=== PATIENT | male | born 1985 | race Caucasian/White ===

== ENCOUNTER 2020-04-04 11:32 | Outpatient (REF) | payer OTHER, SELFPAY ==
[2020-04-04 11:54] LABS: COVID-19 Test Negative (Negative)
== END 2020-04-04 11:33 | disposition home or self-care (01) ==
LOC: HO.EMPCOV 11:32
PROVIDERS: Visit Provider Internal Medicine
DX: Z20.828 Contact with and (suspected) exposure to other viral communicable diseases (principal)
CPT/HCPCS: 87635; C9803

== ENCOUNTER → 2021-01-07 15:31 | Outpatient (BNVA) | payer OTHER, SELFPAY | PROVIDERS: PCP Nurse Practitioner Family; Visit Provider Surgery ==

== ENCOUNTER 2021-01-16 06:54 | Outpatient (REF) | payer OTHER, SELFPAY ==
[2021-01-16 09:20] LABS: Alanine Aminotransferase 18 U/L (0-40); Albumin Level 4.3 g/dL (3.5-5.0); Alkaline Phosphatase 64 U/L (39-117); Anion Gap 13 (12-20); Aspartate Amino Transferase 19 U/L (5-37); Bilirubin Total 1.1 mg/dL (0.0-1.0); Blood Urea Nitrogen 13 mg/dL (9-16); Carbon Dioxide 27 mmol/L (22-29); Chloride 104 mmol/L (96-108); Cholesterol 150 mg/dL; Estimated Glomerular Filt Rate > 60; Glucose Fasting 101 mg/dL (60-99); HDL Cholesterol 51 mg/dL; LDL Cholesterol Calculated 80 mg/dl; Sodium 140 mmol/L (135-145); Total Protein 6.5 g/dL (6.5-8.0); Triglycerides 97 mg/dL
[2021-01-16 09:45] LABS: Appearance Urine CLEAR; Color Urine YELLOW; Glucose Urine UA NEG (NEG); Leukocyte Esterase Urine NEG (NEG); Nitrite Urine NEG (NEG); PH 6.5 (5.0-8.0); Urine Blood NEG (NEG); Urine Ketones 5 MG/DL (NEG); Urine Protein NEG (NEG-TRACE)
== END 2021-01-16 06:55 | disposition home or self-care (01) ==
LOC: HO.LAB 06:54
PROVIDERS: PCP Nurse Practitioner Family; Visit Provider Nurse Practitioner Family
DX: Z00.00 Encounter for general adult medical examination without abnormal findings (principal)
CPT/HCPCS: 36415; 80053; 80061; 81003; 84443

== ENCOUNTER 2021-01-27 09:13 | Day surgery (SDC) | payer OTHER, SELFPAY ==
[2021-01-21 17:05] VITALS: BMI 25.5
--- NOTE | 2021-01-24 12:22 | HO.ANESPROP2 ---
Documented by User: Larissa Osman NP 01/24/21 12:24 HPI - Anesthesia Eval Consult details Narrative: 35yo M for Hernia Repair Umbilical PMFSH Active Problems Active Problems: All Active Problems (Updated 01/21/21 @ 16:58 by Deborah Sanders RN) Physical exam (Acute) Ventral hernia (Acute) Past Medical History Medical History No significant past medical history Family History Family History Maternal Grandmother Lung cancer Maternal Grandfather Leukemia Mother Skin cancer Surgical History Surgical History History of hand surgery Social History Social History Housing: House Are you a primary physician primary care sports medicine to a significant other at home: No Do you presently have visiting nurse or other home services: No Patient Tobacco Use Status: Former Tobacco user Quit Date: 5 yrs ago Tobacco use type: Cigarette Years Smoked: 5 years ago Use of substances other than those prescribed or required for medical reasons: No Have you been hit, kicked, punched, or otherwise hurt by someone within the past year? If so, by whom?: No Are you DNR?: No Advance Directives: No Advance Directives Information Provided: No Advance Directives on File: No Recently lost weight without trying: No Eating poorly because of decreased appetite: No Nutrition Risks: No Nutritional Risk service: Yes Current occupational status: employed Current occupation: [employer] Meds Allergies Allergy/AdvReac Type Severity Reaction Status Date / Time No Known Allergies Allergy Verified 01/27/21 09:20 Home Medications Medication Instructions Recorded Confirmed Last Taken Type No Known Home Meds 12/10/20 01/21/21 Unknown History Exam Exam Date and Time: January 24, 2021 1222 Height,Weight and Vital Signs: Height 5 ft 10 in Weight 80.739 kg Pertinent Lab Results Pertinent Lab Results: Laboratory Tests 10/26/19 01/16/21 09:22 07:00 WBC 5.8 Hgb 15.3 Hct 46.0 Plt Count 247 Sodium 140 Potassium 4.0 Chloride 104 Carbon Dioxide 27 BUN 13 Creatinine 1.15 Assessment and Plan Assessment Anesthesia Assessment: Chart Reviewed Documented by User: Connor Burr MD 01/27/21 11:01 [facility] Past Medical History Medical History No significant past medical history Family History Family History Maternal Grandmother Lung cancer Maternal Grandfather Leukemia Mother Skin cancer Family history of problems with anesthesia: No Surgical History Surgical History History of hand surgery History of Problems with Anesthesia: No Social History Social History Housing: House Are you a primary physician primary care sports medicine to a significant other at home: No Do you presently have visiting nurse or other home services: No Patient Tobacco Use Status: Former Tobacco user Quit Date: 5 yrs ago Tobacco use type: Cigarette Years Smoked: 5 years ago Use of substances other than those prescribed or required for medical reasons: No Have you been hit, kicked, punched, or otherwise hurt by someone within the past year? If so, by whom?: No Are you DNR?: No Advance Directives: No Advance Directives Information Provided: No Advance Directives on File: No Recently lost weight without trying: No Eating poorly because of decreased appetite: No Nutrition Risks: No Nutritional Risk service: Yes Current occupational status: employed Current occupation: [employer] Meds Allergies Allergy/AdvReac Type Severity Reaction Status Date / Time No Known Allergies Allergy Verified 01/27/21 09:20 Home Medications Medication Instructions Recorded Confirmed Last Taken Type No Known Home Meds 12/10/20 01/21/21 Unknown History Exam Airway Mallampati Class: I TM Dist: >3cm Neck ROM: Full Loose/Missing/Broken Teeth: No Heart: ok Lungs: ok Assessment and Plan Final Anesthetic Review Family History of Problems with Anesthesia: No History of Problems with Anesthesia: No NPO: Yes ASA Class: I Final Preanesthetic Review: No Changes in Pt Med Stat, Meds/Allgs Chart Reviewed, Consent Obtained/Reviewed and Anes Risks/Benef Reviewed Patient Risk: Low Procedure Risk: Low Anesthetic Plan Anesthetic Plan: GA and Agree w/ Assess. and Plan Disposition: Standard PACU
[2021-01-27] VITALS (7 sets, daily range): BP systolic 117–138; BP diastolic 67–75; PULSE 65–81; RESP 16–18; TEMP 36.6–36.7; O2SAT 98–99
--- NOTE | 2021-01-27 09:08 | MHC.SHP ---
Pre-Procedural Eval Section A Date of Service: 01/27/21 The patient is an INPATIENT: No Changes since office visit: Yes Patient answered all questions; No Cold of Flu in the past 2 weeks, No New Medical Problems and No Changes in Medication The History & Physical has been completed within 30 days and I have reviewed it.: Yes Section B Chief Complaint: Umbilical hernia without obstruction or gangrene Allergies: Allergies Allergy/AdvReac Type Severity Reaction Status Date / Time No Known Allergies Allergy Verified 01/21/21 17:05 Plan Diagnosis/Plan: Unchanged I have reviewed the history and physical and performed a pertinent physical examination on my patient. No changes have occurred unless specified.
[2021-01-27] MEDS: Lactated Ringers 1,000 ML 100 ML IVCONT (09:43)
--- NOTE | 2021-01-27 11:48 | W.PM.OPN ---
Operative Note Operative Note Date of Service: 01/27/21 Narrative: Preoperative diagnosis: Ventral hernia Postoperative diagnosis: Same Procedure: Repair of ventral hernia with mesh Surgeon: Stanley Fischer MD Solar Installation Foreman: Helen Monsivais PA-C Anesthesia: General LMA Indications for procedure: 35-year-old male patient presenting with an upper abdominal lump which increases in size with lifting and straining reduces with light pressure. The lump has increased in size and is now causing increased discomfort. He presents today for repair of this ventral hernia. Operative findings: Ventral hernia in the upper abdomen with a defect measuring approximately 2 cm in diameter. This was repaired using a small round Ventralex mesh. Specimen: None Estimated blood loss: 5 mL Complications: None Procedure details: Patient was brought to the OR placed in a supine position. After administering general anesthesia the patient's abdomen was prepped with ChloraPrep and draped in a sterile fashion. A surgical time-out was called the consent confirmed. Patient received preoperative antibiotics and Venodyne boots were in place. Local anesthesia consisting of 0.5% Sensorcaine plain was infiltrated in the region around the hernia. A midline incision was then made directly over the palpable lump in carried out through subcutaneous tissue up to the hernia sac. The hernia sac was then dissected circumferentially down to the fascial defect. The fascial defect was then opened circumferentially and the hernia sac reduced into the abdominal cavity. A preperitoneal space was then created using electrocautery and blunt dissection. The small round Ventralex mesh was then obtained. This was then deployed into the preperitoneal space. Fascia was closed over the mesh incorporating the sutures in the mesh. This was then using [id number] 1 Tycron sutures. Wounds were then irrigated with saline solution and suctioned dry. Additional local was infiltrated into the muscular tissue and subcutaneous tissue. Subcutaneous tissue was then reapproximated using interrupted 3-0 Polysorb sutures. Dermis was reapproximated using interrupted 3-0 Polysorb sutures. Skin was then closed using a running subcuticular 4-0 Polysorb suture. Steri-Strips 2 x 2 gauze and Tegaderm were then applied. The patient tolerated the procedure well. Sponge, instrument, and needle counts were reported as correct. The patient was transferred to PACU in stable condition.
[2021-01-27] MEDS: Acetaminophen 325 MG TABLET 650 MG PO (12:26)
[2021-01-27] MEDS: oxyCODONE HCl Immed Release 5 MG TABLET PO (12:28)
== END 2021-01-27 13:15 | disposition home or self-care (01) ==
PROVIDERS: PCP Nurse Practitioner Family; Visit Provider Surgery
PROC: (CPT 49560; principal; 2021-01-27 10:50)
DX: K43.9 Ventral hernia without obstruction or gangrene (principal)
CPT/HCPCS: 49560; 49568; C1781; J0690; J1100; J1885; J2250; J2405; J3010

== ENCOUNTER → 2021-02-04 15:20 | Outpatient (BNVA) | payer OTHER, SELFPAY | PROVIDERS: PCP Nurse Practitioner Family; Visit Provider Surgery ==

== ENCOUNTER → 2021-03-11 12:57 | Outpatient (BNVA) | payer SELFPAY | PROVIDERS: PCP Nurse Practitioner Family; Referring Provider Nurse Practitioner Family; Visit Provider Surgery | DX: Z48.815 Encounter for surgical aftercare following surgery on the digestive system (principal); Z87.19 Personal history of other diseases of the digestive system | CPT/HCPCS: 99212 ==

== ENCOUNTER 2021-12-11 13:43 | Outpatient (REF) | payer OTHER, SELFPAY ==
--- NOTE | ~2021-12-11 | XR_ITS ---
EXAMINATION: XR KNEE AP STANDING CLINICAL INFORMATION: Bilateral knee pain COMPARISON: None TECHNIQUE: AP bilateral standing view of the knees was obtained. Upright lateral view each knee. FINDINGS: BILATERAL AP KNEE STANDING: There is normal bilateral median and lateral compartment joint space without bony erosive changes. No loose bodies or fracture seen. LEFT KNEE: The patellofemoral compartment joint space is normal. No loose bodies or joint effusion bony erosive changes. No visible acute fracture or dislocation. RIGHT KNEE: The patellofemoral compartment joint space is normal. There are no loose bodies, bony erosive changes or joint effusion. No visible acute fracture or dislocation. XR/XR knee standing BI IMPRESSION: 1. Unremarkable bilateral knee AP standing. 2. Unremarkable bilateral lateral knee exam.
== END 2021-12-11 13:44 | disposition home or self-care (01) ==
LOC: HO.HMGCX 13:43
PROVIDERS: PCP Nurse Practitioner Family; Visit Provider Nurse Practitioner Family
DX: M25.561 Pain in right knee (principal); M25.562 Pain in left knee
CPT/HCPCS: 73565

== ENCOUNTER 2022-02-20 09:00 | Outpatient (RCR) | payer OTHER, SELFPAY ==
--- NOTE | 2022-01-30 09:59 | MHC.PT.EP ---
[facility] [place] Office [place] Office [place] Office [address] Josie Cartwright [address] [phone] F: [phone] F: [phone] F: [phone] F: [phone] Physical Therapy Plan of Care Date of Evaluation: Date of Surgery: NA Diagnosis: Pain in L knee Assessment: Brenden is a 36 year old male who is referred to PT for L knee pain . He reports of having pain in B knee for over 10 years. He was in the and got out 11 years back and has had pain since then. His symptoms have gotten worse with time. On PT examination he presents with no TTP, 5/10 pain with squats and stairs, knee ROM WNL, decreased B hip and knee strength and mildly alerted posture. He presented with no gait deviations. He is independent with all ADLS however has pain with activites like squatting and stairs. He still does them but modifies by using UE support. He would benefit from skilled PT to address the aforementioned impairments and improve tolerance to functional activities. Frequency and Duration: The patient will be seen 2/week for 4 weeks Short Term Goals: 1. Pt will have 50% decrease in pain with stair negotiation in 2 weeks. 2. Pt will be able to perform squats to help his daughter wear her shoes with a pain no more than 1/10 in 3 weeks. Pin Setter Goals: 1. Pt will be able to perform deep squats and stair negotiation without pain in 4 weeks. 2. Pt will be independent with [facility] for symptom management and maintenance following d/c in 4 weeks. Treatment Plan: Modalities to reduce pain, spasms and effusion. Manual therapy to restore motion and function. Therapeutic exercise to improve strength and flexibility. Neuromuscular re-education for posture and balance. Therapeutic activities to return to functional activities of daily living. Electronically signed by: Ann Rodriguez PT DPT Please sign and return to therapist. Thank you for your referral.
--- NOTE | 2022-03-31 08:42 | MHC.PT.DC ---
[facility] [place] Office [place] Office [place] Office [address] Josie Cartwright [address] [phone] F: [phone] F: [phone] F: [phone] F: [phone] Physical Therapy Discharge Report Diagnosis: Pain in L knee Date of Surgery: NA Date of Evaluation: 01/30/22 Date of Discharge: 03/31/22 Treatments to Date: 3 Cancellations to Date: 0 No Shows to Date: Discharge Status: Patient Elected to Stop Discharge Summary: Brenden did not attend PT after his 3rd visit. He canceled all his appointments. He is therefore being d/c from PT. Electronically signed by: Ann Rodriguez PT DPT Please sign and return to therapist. Thank you for your referral.
== END 2022-03-31 08:42 | disposition home or self-care (01) ==
LOC: HO.PT 09:00
PROVIDERS: PCP Nurse Practitioner Family; Visit Provider Nurse Practitioner Family
DX: M25.562 Pain in left knee (principal)
CPT/HCPCS: 97110; 97161

== ENCOUNTER 2022-03-13 09:03 | Outpatient (REF) | payer OTHER, SELFPAY ==
[2022-03-13 09:17] LABS: MANUAL DIFF FLAG NO
[2022-03-13 09:37] LABS: Basophils Percent Auto 0.8 % (0-2); Eosinophils Absolute Auto 0.2 X10*3/uL (0.0-0.4); Eosinophils Percent Auto 2.9 % (0-4); Hematocrit 42.9 % (42.0-52.0); Hemoglobin 14.8 g/dl (14.0-18.0); Imm Gran Abs Auto 0.02 X10*3/uL (0.00-0.03); Imm Gran Pct Auto 0.4 % (0.0-0.4); Lymphocytes Absolute Auto 2.1 X10*3/uL (1.2-4.9); Lymphocytes Percent Auto 39.5 % (20-40); Mean Corpuscular HGB Conc 34.5 g/dl (31.0-36.0); Mean Corpuscular Volume 86.8 fL (80.0-98.0); Mean Platelet Volume 9.2 fL (9.4-12.4); Monocytes Absolute Auto 0.4 X10*3/uL (0.1-1.2); Monocytes Percent Auto 6.9 % (2-11); Neutrophils Absolute Auto 2.6 x10*3/uL (2.0-8.3); Neutrophils Percent Auto 49.5 % (45-73); Platelet Count 231 X10*3/uL (160-400); Red Blood Count 4.94 X10*6/uL (4.60-5.80); Red Cell Distribution Width 12.6 % (11.0-16.0); White Blood Count 5.2 X10*3/uL (4.8-10.8)
[2022-03-13 10:02] LABS: Alanine Aminotransferase 18 U/L (0-40); Albumin Level 4.3 g/dL (3.5-5.0); Alkaline Phosphatase 55 U/L (39-117); Anion Gap 12 (12-20); Aspartate Amino Transferase 18 U/L (5-37); Bilirubin Total 1.4 mg/dL (0.0-1.0); Blood Urea Nitrogen 17 mg/dL (9-16); Calcium 9.1 mg/dL (8.4-10.2); Carbon Dioxide 29 mmol/L (22-29); Chloride 104 mmol/L (96-108); Cholesterol 191 mg/dL; Estimated Glomerular Filt Rate > 60; Glucose Fasting 110 mg/dL (60-99); HDL Cholesterol 52 mg/dL; LDL Cholesterol Calculated 120 mg/dl; Potassium 4.7 mmol/L (3.3-5.1); Sodium 140 mmol/L (135-145); Total Protein 6.5 g/dL (6.5-8.0); Triglycerides 98 mg/dL
[2022-03-13 10:26] LABS: TSH reflex Free T4 1.13 uIU/mL (0.32-4.0)
[2022-03-13 10:34] LABS: Appearance Urine Clear; Color Urine Yellow; Glucose Urine UA Negative (Negative); Leukocyte Esterase Urine Negative (Negative); Nitrite Urine Negative (Negative); PH 6.5 (5.0-9.0); Urine Blood Negative (Negative); Urine Ketones Negative (Negative); Urine Protein Negative (Neg-Trace)
== END 2022-03-13 09:04 | disposition home or self-care (01) ==
LOC: HO.LAB 09:03
PROVIDERS: PCP Nurse Practitioner Family; Visit Provider Nurse Practitioner Family
DX: Z00.00 Encounter for general adult medical examination without abnormal findings (principal)
CPT/HCPCS: 36415; 80053; 80061; 81003; 84443; 85025

== ENCOUNTER 2022-12-15 07:31 | Outpatient (AMB) | payer OTHER, SELFPAY ==
--- NOTE | 2022-12-15 07:36 | A.OFFPC_ITS ---
Vital Signs 12/15/22 07:38 Height 5 ft 10 in Weight 182 lb 8 oz BMI 26.2 BP 120/76 Blood Pressure Location Rt brachial Position Sitting Pulse 57 Pulse Source Pulse Oximeter Pulse Oximetry (%) 99 Oxygen Delivery Method Room Air Intake Visit Reasons: annual PE Allergies No Known Allergies Allergy (Verified 12/15/22 07:41) Tobacco use date assessed: 12/15/22 Dental Screening Dental Screen Date: 12/15/22 Did you have a dental visit in the last 12 months?: Yes Did you have a dental problem in the last 6 months where you did not have access to dental care?: No Was dental information given to patient?: Patient has dentist HPI annual PE HPI Details Pt is here for a PE. Will order labs. [facility] Medical History No significant past medical history Surgical History H/O vasectomy H/O ventral hernia repair History of hand surgery Family History Maternal Grandmother Lung cancer Maternal Grandfather Leukemia Mother Skin cancer Social History Housing: House Are you a primary inspector health care facilities to a significant other at home: No Do you presently have visiting nurse or other home services: No Patient Tobacco Use Status: Former Tobacco user Quit Date: 5 yrs ago Tobacco use type: Cigarette Years Smoked: 5 years ago e-Cigarette/Vaping Use: Never Used Second Hand Smoke Exposure: No service: Yes Current occupational status: employed Current occupation: [employer] Current occupational exposures/hazards: No Cognitive needs: No Hearing needs: No Vision needs: No Questionnaire Thrive Questionnaire Date Thrive assessed: 12/11/21 AUDIT C Alcohol Use Questionnaire (AUDIT-C) 1. How often do you have a drink containing alcohol?: 2-3 times a week 2. How many drinks containing alcohol do you have on a typical day when you are drinking?: 1 or 2 3. How often do you have six or more drinks on one occasion?: Less than monthly Total Score: 4 REVA-7 AMB Questionnaire REVA-7 Date REVA - 7 assessed: 12/11/21 Source: Developed by Drs. John Wilhelm, Vandana العلي, Cristi Winters and colleagues, with an educational sintia from [employer]™. Review of Systems Const Denies chills and Denies fever(s) Eyes Denies blurry vision ENT Denies vertigo, Denies dizziness and Denies sore throat Card Denies chest pain at rest, Denies chest pain with activity, Denies diaphoresis, Denies dyspnea and Denies dyspnea on exertion Resp Denies cough, Denies dyspnea, Denies dyspnea on exertion and Denies wheezing GI Denies abdominal pain, Denies melena, Denies hematochezia, Denies constipation, Denies diarrhea and Denies loose stools Denies hematuria Musc Denies numbness and Denies tingling Skin/Breast Denies lesions Neuro Denies vertigo, Denies dizziness, Denies numbness and Denies tingling Psych Denies anxiety, Denies depression, Denies homicidal ideation, Denies suicidal ideation and Denies other (substance abuse) Aller/Immun Denies wheezing Physical exam (Primary Care) Vital Signs: Last Vital Signs Pulse 57 12/15/22 07:38 BP 120/76 12/15/22 07:38 Pulse Ox 99 12/15/22 07:38 Oxygen Delivery Method Room Air 12/15/22 07:38 BMI result Body Mass Index 26.2 Tobacco/Smoking Status: Tobacco use Status Tobacco use date assessed 12/15/22 12/15/22 07:44 Patient Tobacco Use Status Former Tobacco user 12/15/22 07:44 Tobacco use type Cigarette 12/15/22 07:44 e-Cigarette/Vaping Use Never Used 12/15/22 07:44 Thrive Assessment: Date of Thrive Assessment Date Thrive assessed 12/11/21 12/15/22 07:44 Const General: cooperative Nutritional Appearance: well nourished Orientation/consciousness: patient oriented x3 HENMT Head: Yes normal to inspection, Yes normocephalic and Yes atraumatic Ears: TM's normal bilaterally Eyes General: appearance normal, both eyes and all related structures Alignment and Position: alignment normal and position normal Neck Neck: Yes normal visual inspection and Yes no lymphadenopathy Thyroid: Thyroid normal Resp Effort & Inspection: normal respiratory effort Auscultation: clear to auscultation bilaterally Cardio Rate: regular rate Rhythm: regular rhythm Heart sounds: S1 normal heart sound present, S2 normal heart sound present and no murmurs GI Palpation (GI): Soft to palpation and nontender Auscultation: normal bowel sounds Male General Exam: Yes normal external exam Penis: normal penis Scrotum: scrotum normal, testes descended bilaterally and no inguinal hernias Testes: no testicular mass Skin Rashes: no rashes Neuro General: patient oriented x3, moves all extremities, no focal motor deficits and deep tendon reflexes 2+ bilaterally Romberg Test: Negative Psych Appearance: grossly normal Mental Status: mental status grossly normal Speech and movement: Normal speech and movement present Affect: normal affect Attitude: cooperative Thought process: Normal thought process present Thought content: Normal thought content present Insight: Good insight present (Psych) Judgement: Good judgement present (Psych) Assessment and Plan Assessment & Plan (1) Physical exam: Code(s): Z00.00 - Encounter for general adult medical examination without abnormal findings Plan: Labs ordered Plan The patient agreed to the use of a medical lab assistant for this encounter. Scribed for SHERRI Serna by Oly Pratt medical lab assistant, on 12/15/2022 at 07:50 EST. Coding Level of Care Code Est Pt Prev Care 18-39y(14661) Diagnoses Physical exam Z00.00
[2022-12-15 07:38] VITALS: BP 120/76; PULSE 57; O2SAT 99; BMI 26.2
== END 2022-12-15 08:16 | disposition home or self-care (01) ==
PROVIDERS: Visit Provider Nurse Practitioner Family
DX: Z00.00 Encounter for general adult medical examination without abnormal findings (principal)
CPT/HCPCS: 99395

== ENCOUNTER 2022-12-15 08:17 | Outpatient (REF) | payer OTHER, SELFPAY ==
[2022-12-15 11:27] LABS: Basophils Absolute Auto 0.1 X10*3/uL (0.0-0.2); Basophils Percent Auto 0.8 % (0-2); Eosinophils Absolute Auto 0.3 X10*3/uL (0.0-0.4); Eosinophils Percent Auto 5.2 % (0-4); Hematocrit 44.5 % (42.0-52.0); Hemoglobin 14.7 g/dl (14.0-18.0); Imm Gran Abs Auto 0.02 X10*3/uL (0.00-0.03); Imm Gran Pct Auto 0.3 % (0.0-0.4); Lymphocytes Absolute Auto 2.4 X10*3/uL (1.2-4.9); Lymphocytes Percent Auto 36.8 % (20-40); MANUAL DIFF FLAG NO; Mean Corpuscular Hemoglobin 29.1 pg (27.0-33.0); Mean Corpuscular Volume 87.9 fL (80.0-98.0); Mean Platelet Volume 9.5 fL (9.4-12.4); Monocytes Absolute Auto 0.4 X10*3/uL (0.1-1.2); Monocytes Percent Auto 5.8 % (2-11); Neutrophils Absolute Auto 3.4 x10*3/uL (2.0-8.3); Neutrophils Percent Auto 51.1 % (45-73); Platelet Count 246 X10*3/uL (160-400); Red Blood Count 5.06 X10*6/uL (4.60-5.80); Red Cell Distribution Width 12.9 % (11.0-16.0); White Blood Count 6.6 X10*3/uL (4.8-10.8)
[2022-12-15 11:51] LABS: Appearance Urine Clear; Color Urine Yellow; Glucose Urine UA Negative (Negative); Leukocyte Esterase Urine Negative (Negative); Nitrite Urine Negative (Negative); PH 6.5 (5.0-9.0); Specific Gravity - Urine <= 1.005 (1.005-1.025); Urine Blood Negative (Negative); Urine Ketones Negative (Negative); Urine Protein Negative (Neg-Trace)
[2022-12-15 12:06] LABS: Alanine Aminotransferase 17 U/L (0-40); Albumin Level 4.2 g/dL (3.5-5.0); Alkaline Phosphatase 53 U/L (39-117); Anion Gap 10 (12-20); Aspartate Amino Transferase 18 U/L (5-37); Bilirubin Total 0.7 mg/dL (0.0-1.0); Blood Urea Nitrogen 21 mg/dL (9-16); Calcium 8.9 mg/dL (8.4-10.2); Carbon Dioxide 29 mmol/L (22-29); Chloride 103 mmol/L (96-108); Cholesterol 179 mg/dL; Estimated Glomerular Filt Rate > 60; Glucose Fasting 115 mg/dL (60-99); HDL Cholesterol 57 mg/dL; LDL Cholesterol Calculated 91 mg/dl; Potassium 4.2 mmol/L (3.3-5.1); Sodium 138 mmol/L (135-145); Total Protein 6.7 g/dL (6.5-8.0); Triglycerides 155 mg/dL
[2022-12-15 12:09] LABS: TSH reflex Free T4 1.64 uIU/mL (0.32-4.0)
== END 2022-12-15 08:18 | disposition home or self-care (01) ==
LOC: HO.HMGCLDS 08:17
PROVIDERS: PCP Nurse Practitioner Family; Visit Provider Nurse Practitioner Family
DX: Z00.00 Encounter for general adult medical examination without abnormal findings (principal)
CPT/HCPCS: 36415; 80053; 80061; 81003; 84443; 85025

== ENCOUNTER 2023-12-21 11:28 | Outpatient (AMB) | payer OTHER, SELFPAY ==
[2023-12-21 11:30] VITALS: BP 122/78; PULSE 76; O2SAT 98; BMI 26.1
--- NOTE | 2023-12-21 11:30 | A.OFFPC_ITS ---
Vital Signs 12/21/23 11:30 Height 5 ft 10 in Weight 182 lb BMI 26.1 BP 122/78 Blood Pressure Location Rt brachial Position Sitting Pulse 76 Pulse Source Pulse Oximeter Pulse Oximetry (%) 98 Oxygen Delivery Method Room Air Intake Visit Reasons: Annual PE Intake Note: pt is here for annual exam Rod Hanger Required: No Accompanied by: Self / Same As Patient Allergies No Known Allergies Allergy (Verified 12/21/23 11:31) Medication List - Last Reconciled 12/21/23 by SHERRI Lucas No Known Home Meds Tobacco use date assessed: 12/21/23 Dental Screening Dental Screen Date: 12/21/23 Did you have a dental visit in the last 12 months?: Yes Did you have a dental problem in the last 6 months where you did not have access to dental care?: No Was dental information given to patient?: Patient has dentist HPI Annual PE HPI Details pt is here for a PE. Offers no questions or concerns [facility] Medical History No significant past medical history Surgical History H/O vasectomy H/O ventral hernia repair History of hand surgery Family History Maternal Grandmother Lung cancer Maternal Grandfather Leukemia Mother Skin cancer Social History Housing: House Are you a primary child day care provider to a significant other at home: No Do you presently have visiting nurse or other home services: No Patient Tobacco Use Status: Former Tobacco user Tobacco use type: Cigarette Years Smoked: 5 years ago e-Cigarette/Vaping Use: Never Used Second Hand Smoke Exposure: No service: Yes Current occupational status: employed Current occupation: [employer] Current occupational exposures/hazards: No Cognitive needs: No Hearing needs: No Vision needs: No Questionnaire PHQ-9 Over the last 2 weeks, how often have you been bothered by any of the following problems? 1. Little interest or pleasure in doing things: not at all 2. Feeling down, depressed, or hopeless: not at all 3. Trouble falling or staying asleep, or sleeping too much: several days 4. Feeling tired or having little energy: several days 5. Poor appetite or overeating: not at all 6. Feeling bad about yourself - or that you are a failure or have let yourself or your family down: several days 7. Trouble concentrating on things, such as reading the newspaper or watching television: several days 8. Moving or speaking so slowly that other people could have noticed. Or the opposite - being so fidgety or restless that you have been moving around a lot more than usual: not at all 9. Thoughts that you would be better off or of hurting yourself in some way: not at all Total score: 4 Depression Screening Interpretation: Negative Depression Screening Done: Yes 43768 - PHQ-9 Billing: Yes Source: Developed by Drs. John Wilhelm, Vandana العيل, Cristi Winters and colleagues, with an educational sintia from [employer]. Thrive Questionnaire Date Thrive assessed: 12/21/23 I am a: Patient What is your living situation today?: I have a steady place to live Within the past 12 months, did the food you bought not last and you didn't have the money to get more?: Never true Within the past 12 months, did you worry whether your food would run out before you got money to buy more?: Never true Do you have trouble paying for medicines?: No Do you have trouble getting transportation to medical appointments?: No Do you have trouble paying your heating and electricity bill?: No Do you have trouble taking care of your child, family member or friend?: No Do you have trouble with day-to-day activities such as bathing, preparing meals, shopping, managing finances, etc.?: No Are you currently unemployed and looking for a job?: No Are you interested in more education?: No Please select the resources that you would like help with: None Currently or been in a relationship where the following occur: No concerns reported THRIVE Score: 0 AUDIT C Alcohol Use Questionnaire (AUDIT-C) 1. How often do you have a drink containing alcohol?: 2-3 times a week 2. How many drinks containing alcohol do you have on a typical day when you are drinking?: 1 or 2 3. How often do you have six or more drinks on one occasion?: Less than monthly Total Score: 4 Score Reviewed/Action Taken: Yes REVA-7 AMB Questionnaire REVA-7 Date REVA - 7 assessed: 12/21/23 Feeling nervous, anxious, or on edge: 0 = Not at all Not being able to stop or control worryin = Not at all Worrying too much about different things: 1 = Several days Trouble relaxin = Several days Being so restless that it is hard to sit still: 0 = Not at all Becoming easily annoyed or irritable: 1 = Several days Feeling afraid as if something awful might happen: 0 = Not at all Total REVA-7 score (0-4 normal; 5-9 mild; 10-14 moderate; 15-21 severe): 3 Source: Developed by Drs. John Wilhelm, Vandana العلي, Cristi Winters and colleagues, with an educational sintia from [employer]. REVA-7 Assessment Billing REVA-7 Assessment Tool: REVA-7 Assessment 67419 Review of Systems Const Denies chills and Denies fever(s) Eyes Denies blurry vision ENT Denies vertigo, Denies dizziness and Denies sore throat Card Denies chest pain at rest, Denies chest pain with activity, Denies diaphoresis, Denies dyspnea and Denies dyspnea on exertion Resp Denies cough, Denies dyspnea, Denies dyspnea on exertion and Denies wheezing GI Denies abdominal pain, Denies melena, Denies hematochezia, Denies constipation, Denies diarrhea and Denies loose stools Denies hematuria Musc Denies numbness and Denies tingling Skin/Breast Denies lesions Neuro Denies vertigo, Denies dizziness, Denies numbness and Denies tingling Psych Denies anxiety, Denies depression, Denies homicidal ideation, Denies suicidal ideation and Denies other (substance abuse) Aller/Immun Denies wheezing Physical exam (Primary Care) Vital Signs: Last Vital Signs Pulse 76 12/21/23 11:30 BP 122/78 12/21/23 11:30 Pulse Ox 98 12/21/23 11:30 Oxygen Delivery Method Room Air 12/21/23 11:30 BMI result Body Mass Index 26.1 Tobacco/Smoking Status: Tobacco use Status Tobacco use date assessed 12/21/23 12/21/23 11:35 Patient Tobacco Use Status Former Tobacco user 12/21/23 11:35 Tobacco use type Cigarette 12/21/23 11:35 e-Cigarette/Vaping Use Never Used 12/21/23 11:35 PHQ-9: PHQ-9 Score PHQ-9: Total score 4 12/21/23 11:35 Depression Screening Interpretation: Negative Thrive Assessment: Date of Thrive Assessment Date Thrive assessed 12/21/23 12/21/23 11:35 Currently or been in a relationship where the following occur: No concerns reported Const General: cooperative Nutritional Appearance: well nourished Orientation/consciousness: patient oriented x3 HENMT Head: Yes normal to inspection, Yes normocephalic and Yes atraumatic Ears: TM normal on the right and TM normal on the left Eyes General: appearance normal, both eyes and all related structures Alignment and Position: alignment normal and position normal Neck Neck: Yes normal visual inspection and Yes no lymphadenopathy Resp Effort & Inspection: normal respiratory effort Auscultation: clear to auscultation bilaterally Cardio Rate: regular rate Rhythm: regular rhythm Heart sounds: S1 normal heart sound present, S2 normal heart sound present and no murmurs GI Palpation (GI): Soft to palpation and nontender Auscultation: normal bowel sounds Male General Exam: Yes normal external exam Penis: normal penis Scrotum: scrotum normal, testes descended bilaterally and no inguinal hernias Testes: no testicular mass Skin Rashes: no rashes Neuro General: patient oriented x3, moves all extremities, no focal motor deficits and deep tendon reflexes 2+ bilaterally Romberg Test: Negative Extrem Right lower extremity: no edema Left lower extremity: no edema Psych Affect: normal affect Attitude: cooperative Thought process: Normal thought process present Assessment and Plan Assessment & Plan (1) Physical exam: Code(s): Z00.00 - Encounter for general adult medical examination without abnormal findings Orders: Orders Comprehensive [place]. Panel Fast Today Z00.00 - Encounter for general adult medical examination without abnormal findings Lipid Panel Today Z00.00 - Encounter for general adult medical examination without abnormal findings Complete Blood Count Auto Diff Today Z00.00 - Encounter for general adult medical examination without abnormal findings TSH reflex Free T4 Today Z00.00 - Encounter for general adult medical examination without abnormal findings UA CC w/rflx Micro + Cult Today Z00.00 - Encounter for general adult medical examination without abnormal findings Hemoglobin A1c Today Z00.00 - Encounter for general adult medical examination without abnormal findings Coding Level of Care Code Est Pt Prev Care 18-39y(70385) Diagnoses Physical exam Z00.00 Additional Codes REVA-7 Assessment Billing - REVA-7 Assessment Tool: REVA-7 Assessment 93272 ([id number])
== END 2023-12-21 12:10 | disposition home or self-care (01) ==
PROVIDERS: PCP Nurse Practitioner Family; Visit Provider Nurse Practitioner Family
DX: Z00.00 Encounter for general adult medical examination without abnormal findings (principal)
CPT/HCPCS: 99395

== ENCOUNTER 2024-12-08 10:36 | Outpatient (REF) | payer OTHER, SELFPAY ==
--- OUTSIDE RECORDS SUMMARY | 2024-12-08 10:40 | XMS_ITS | Encounter Summary ---
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 Name Role Phone Md, Unknown Primary Care Provider Unavailabl e Reason for Referral * Imaging (Routine) - Closed Specialty Diagnoses / Procedures Referred By Contac t Referred To Contact Radiology Diagnoses Pain in thoracic spine Procedures XR THORACOLUMBAR SPINE 2 VIEWS Dora Joel NP [address] [place] [address] Phone: tel: fax: [facility] - Central Sched[place] Phone: tel: fax: Referral ID Status Reason Start Date Expiration Date V isits Requested Visits Authorized [id number] Closed Perform Procedure 05/05/2023 05/04/2024 1 1 * Imaging (Routine) - Closed Specialty Diagnoses / Procedures Referred By Contac t Referred To Contact Radiology Diagnoses Pain, unspecified Procedures XR LUMBAR SPINE 2-3 VIEWS Dora Joel NP [address] [place] [address] Phone: tel: fax: [facility] - Central Scheduling [place] Phone: tel: fax: Referral ID Status Reason Start Date Expiration Date V isits Requested Visits Authorized [id number] Closed Perform Procedure 05/05/2023 05/04/2024 1 1 Encounter Details Date Type Department Care Team (Late st Contact Info) Description 05/05/2023 Ancillary Orders [facility] Hospital Access [address] [facility] [address] Dora Joel, MARBLE CUTTER OPERATOR [address] [place] [facility] [place] [address] Pain, unspecified (Primary Dx); Pain in thoracic spine Social History Tobacco Use Types Packs/Day Years Used Date Smoking Tobacco: Never Assessed Sex and Gender Information Value Date Recorded Sex Assigned at Not on file Legal Sex Male 10:14 AM EST Gender Identity Not on file Sexual Orientation Not on file documented as of this encounter Plan of Treatment Not on file documented as of this encounter Results * XR LUMBAR SPINE 2-3 VIEWS (05/05/2023 10:52 AM EST) Anatomical Region Laterality Modality Shoulder Radio Fluoroscop y 05/05/2023 2:02 PM EST Impressions 05/05/2023 2:05 PM EST Normal visualized thoracic and lumbar spine x-rays. Narrative 05/05/2023 2:05 PM EST EXAM TYPE: XR LUMBAR SPINE 2-3 VIEWS, XR THORACOLUMBAR SPINE 2 VIEWS CLINICAL INDICATION: Pain, unspecified, exam of lower spine///Pt states pain Rt lower back to lower thoracic spine x 10-12 yrs. COMPARISON: None. FINDINGS: The upper thoracic spine is out of the [id number]. The visualized thoracic spine demonstrates straightening of the normal kyphosis. Vertebral bodies and disc spaces in the visualized thoracic spine appear normal. No fracture, subluxation or significant arthritic changes. There is normal lumbar lordosis. The vertebral bodies and disc spaces in the lumbar spine appear normal. No fracture, subluxation or significant arthritic change is identified. Procedure Note Segundo Trammell MD - 05/05/2023 EXAM TYPE: XR LUMBAR SPINE 2-3 VIEWS, XR THORACOLUMBAR SPINE 2 VIEWS CLINICAL INDICATION: Pain, unspecified, exam of lower spine///Pt statespain Rt lower back to lower thoracic spine x 10-12 yrs. COMPARISON: None. FINDINGS: The upper thoracic spine is out of the [id number]-kf-[id number]. The visualizedthoracic spine demonstrates straightening of the normal kyphosis.Vertebral bodies and disc spaces in the visualized thoracic spine appearnormal. No fracture, subluxation or significant arthritic changes. There is normal lumbar lordosis. The vertebral bodies and disc spaces inthe lumbar spine appear normal. No fracture, subluxation or significantarthritic change is identified. IMPRESSION: Normal visualized thoracic and lumbar spine x-rays. us Dora Joel NP IMG XR PROCEDURES Final R esult * XR THORACOLUMBAR SPINE 2 VIEWS (05/05/2023 10:51 AM EST) Anatomical Region Laterality Modality Radio Fluoroscop y 05/05/2023 2:02 PM EST Impressions 05/05/2023 2:05 PM EST Normal visualized thoracic and lumbar spine x-rays. Narrative 05/05/2023 2:05 PM EST EXAM TYPE: XR LUMBAR SPINE 2-3 VIEWS, XR THORACOLUMBAR SPINE 2 VIEWS CLINICAL INDICATION: Pain, unspecified, exam of lower spine///Pt states pain Rt lower back to lower thoracic spine x 10-12 yrs. COMPARISON: None. FINDINGS: The upper thoracic spine is out of the [id number]-[id number]. The visualized thoracic spine demonstrates straightening of the normal kyphosis. Vertebral bodies and disc spaces in the visualized thoracic spine appear normal. No fracture, subluxation or significant arthritic changes. There is normal lumbar lordosis. The vertebral bodies and disc spaces in the lumbar spine appear normal. No fracture, subluxation or significant arthritic change is identified. Procedure Note Segundo Trammell MD - 05/05/2023 EXAM TYPE: XR LUMBAR SPINE 2-3 VIEWS, XR THORACOLUMBAR SPINE 2 VIEWS CLINICAL INDICATION: Pain, unspecified, exam of lower spine///Pt statespain Rt lower back to lower thoracic spine x 10-12 yrs. COMPARISON: None. FINDINGS: The upper thoracic spine is out of the [id number]-di-[id number]. The visualizedthoracic spine demonstrates straightening of the normal kyphosis.Vertebral bodies and disc spaces in the visualized thoracic spine appearnormal. No fracture, subluxation or significant arthritic changes. There is normal lumbar lordosis. The vertebral bodies and disc spaces inthe lumbar spine appear normal. No fracture, subluxation or significantarthritic change is identified. IMPRESSION: Normal visualized thoracic and lumbar spine x-rays. us Dora Joel MARBLE CUTTER OPERATOR IMG XR PROCEDURES Final R esult documented in this encounter Visit Diagnoses Diagnosis Pain, unspecified- Primary Pain in thoracic spine Pain, unspecified Pain in thoracic spine documented in this encounter Care Teams Asphalt Tamping Machine Operator Relationship Specialty Start Date End Date Md, Unknown 1 Dont Change PCP - General 05/05/23 documented as of this encounter
--- OUTSIDE RECORDS SUMMARY | 2024-12-08 10:40 | XMS_ITS ---
Author Name [facility] Organization Unknown Problems Problem Status Onset Date Problem Type Date of Resoluti on Source Pain in thoracic spine active EncounterDiagnosisAct [id number] H Encounters Encounter Type Encounter Reason Primary Diagnosis Location Date Ambulatory Pain in thoracic spine Pain in thoracic spine [facility] 05/05/2023 Ambulatory Pain, unspecified Pain, unspecified [facility] ealt 05/05/2023 Care Team Organization Name Specialty Phone Email Start Date End [facility] 05/05/2023 [facility] 05/05/202307/2023
[2024-12-08 10:48] LABS: MANUAL DIFF FLAG NO
[2024-12-08 12:02] LABS: Appearance Urine Clear; Glucose Urine UA Negative (Negative); PH 7.5 (5.0-9.0); Specific Gravity - Urine <= 1.005 (1.005-1.025)
[2024-12-08 12:18] LABS: Hematocrit 44.3 % (42.0-52.0); Hemoglobin 15.0 g/dl (14.0-18.0); Imm Gran Abs Auto 0.01 X10*3/uL (0.00-0.03); Imm Gran Pct Auto 0.2 % (0.0-0.4); Lymphocytes Absolute Auto 1.9 X10*3/uL (1.2-4.9); Mean Corpuscular HGB Conc 33.9 g/dl (31.0-36.0); Mean Corpuscular Hemoglobin 29.7 pg (27.0-33.0); Mean Corpuscular Volume 87.7 fL (80.0-98.0); NRBC Abs Auto 0.000 X10*3/uL (0.0-0.012); NRBC Pct Auto 0.0 /100WBC (0.0-0.2); Platelet Count 231 X10*3/uL (160-400); Red Blood Count 5.05 X10*6/uL (4.60-5.80); White Blood Count 5.6 X10*3/uL (4.8-10.8)
[2024-12-08 12:27] LABS: Hemoglobin A1C 133.3810 umol/L; Total Hemoglobin (HGBA1C) 3896.8484 umol/L
[2024-12-08 12:51] LABS: Alanine Aminotransferase 18 U/L (0-40); Albumin Level 4.4 g/dL (3.5-5.0); Alkaline Phosphatase 64 U/L (39-117); Anion Gap 11 (12-20); Aspartate Amino Transferase 23 U/L (5-37); Blood Urea Nitrogen 13 mg/dL (9-16); Calcium 8.7 mg/dL (8.4-10.2); Carbon Dioxide 30 mmol/L (22-29); Chloride 105 mmol/L (96-108); Cholesterol 155 mg/dL (<200); Estimated Glomerular Filt Rate > 60; HDL Cholesterol 55 mg/dL (>40); Potassium 4.1 mmol/L (3.3-5.1); Sodium 142 mmol/L (135-145); Total Protein 6.4 g/dL (6.5-8.0); Triglycerides 61 mg/dL (<150)
== END 2024-12-08 10:37 | disposition home or self-care (01) ==
LOC: HO.LAB 10:36
PROVIDERS: PCP Nurse Practitioner Family; Visit Provider Nurse Practitioner Family
DX: Z00.00 Encounter for general adult medical examination without abnormal findings (principal); Z13.1 Encounter for screening for diabetes mellitus
CPT/HCPCS: 36415; 80053; 80061; 81003; 83036; 84443; 85025

== ENCOUNTER 2025-01-03 08:07 | Outpatient (AMB) | payer OTHER, SELFPAY ==
--- OUTSIDE RECORDS SUMMARY | 2024-04-10 07:00 | XMS_ITS | Encounter Summary ---
Author Name [facility] Address [address] [place] [id number] Care Team Providers Care Communications Department Chairperson Name Role Phone AUGUSTTANYA Primary Care Provider Unavailabl e Insurance Providers: All historical and current Section Date Range: From patient's date of to the date document was created. This section includes the names of all active insurance providers for the patient. Insurance Provider Type of Coverage Plan Name Start of Policy Coverage End of Policy Coverage Group Number Member ID Insurance Provider's Telephone Number Policy Taylor's Name Patient's Relationship to Policy Taylor [facility] Aug 25, 2021 [id number] Froy CALERO PATIENT [facility] Aug 01, 2014 [id number] Froy CALERO PATIENT Selected Encounter This section includes the information on record at [place] for the Encounter. Date/Time Encounter Type Encounter Description Reason Provider Source Apr 10, 2024 11:00 AM [facility] ICD-10-CM F43.10 Post-traumatic stress disorder, unspecified [facility] RICHTER Encounter Template Text not used by [place] Assessments - Encounter Diagnoses This section includes the primary and secondary diagnoses documented for the Encounter. Date/Time Primary/Secondary Diagnosis Diagnosis Name Provider Source Apr 12, 2024 12:57 PM PRIMARY Post-traumatic stress disorder, unspecified YULIANA RICHTER Plan of Treatment: Future Appointments (+ 6 months) and Future Tests (+/- 45 days) The Plan of Treatment section includes future care activities for the [facility] This section includes future appointments and future orders which are active, pending or scheduled. Future Appointments This section includes appointments that were scheduled to occur 6 months from the date of the Encounter, up to a maximum of 20 appointments. The data comes from all [place] treatment facilities. Appointment Date/Time Appointment Type Appointme nt Facility Name Apr 17, 2024 11:00 AM AMBULATORY - PSYCHIATRY [facility] Apr 24, 2024 11:00 AM AMBULATORY - PSYCHIATRY [facility] May 15, 2024 11:00 AM AMBULATORY - PSYCHIATRY [facility] May 29, 2024 11:00 AM AMBULATORY - PSYCHIATRY [facility] Jun 05, 2024 11:00 AM AMBULATORY - PSYCHIATRY [facility] Jun 06, 2024 10:00 AM AMBULATORY - MEDICINE [facility] Jun 12, 2024 11:00 AM AMBULATORY - PSYCHIATRY [facility] Jun 26, 2024 11:00 AM AMBULATORY - PSYCHIATRY [facility] Jul 10, 2024 11:00 AM AMBULATORY - PSYCHIATRY [facility] Jul 17, 2024 11:00 AM AMBULATORY - PSYCHIATRY [facility] Jul 31, 2024 11:00 AM [facility] [place] [facility] Aug 21, 2024 11:00 AM AMBULATORY - [facility] [place] [facility] Aug 28, 2024 11:00 AM AMBULATORY - [facility] [place] [facility] September 04, 2024 11:00 AM AM[facility]ULATORY [facility] [place] [facility] September 11, 2024 11:00 AM AM[facility]ULATORY [facility] [place] [facility] Oct 02, 2024 11:00 AM AM[facility]ORY [facility] [place] [facility] Oct 09, 2024 11:00 AM [facility]ORY [place] [facility] [place] [facility] Social History: Smoking Status (Most current) and Tobacco Use (All prior to encounter date) This section includes the most current, and the historical, smoking and tobacco- related health factors from the NH facility where the Encounter took place. Current Smoking Status This section includes the most current smoking, or tobacco-related health factor, from the [place] facility where the Encounter took place. Date/Time Current Smoking Status Vicky bautista Apr 23, 2022 09:00 AM VA-TOBACCO FORMER USER [facility] Tobacco Use History This section includes a history of the smoking, or tobacco-related health factors, that were collected on or before the date of the Encounter. The data comes from the [place] facility where the Encounter took place. Date/Time Smoking Status/Tobacco Use Comment F acility Apr 23, 2022 09:00 AM VA-TOBACCO QUIT 5 TO < 15 YRS [facility] September 24, 2020 11:00 AM VA-TOBACCO FORMER USER [facility] September 24, 2020 11:00 AM VA-TOBACCO QUIT 5 TO < 15 YRS [facility] Nov 10, 2018 08:07 AM VA-TOBACCO FORMER USER [facility] Nov 10, 2018 08:07 AM VA-TOBACCO QUIT 1 TO < 5 YRS [facility] Aug 06, 2017 02:39 PM QUIT TOBACCO USE 1-7 YEARS AGO [facility] Encounter Notes: All associated encounter notes This section contains the clinical notes associated to the Encounter. Date/Time Encounter Note(s) Provider Source Apr 10, 2024 09:52 PM SOCIAL WORK GROUP COUNSELING NOTE: LOCAL TITLE: SOCIAL WORK GROUP NOTE STANDARD TITLE: SOCIAL WORK GROUP COUNSELING NOTE DATE OF NOTE: APR 10, 2024@21:52 ENTRY DATE: APR 10, 2024@21:52:28 AUTHOR: YULIANA RICHTER COSIGNER: URGENCY: STATUS: COMPLETED [facility] Video Connect (VVC) Standard Documentation VVC Clinician Resources Only: E911 (Emergency Call Relay Center): [phone] National Veterans Crisis Line - 988 then press #1. [facility] Suicide Coordinator [phone], Ext. [phone]; Back-up Ext. [phone] [place] PABLITO Mcfar[place] [phone] Introduction: Visit is being conducted by [place] [facility]. [place] identified with 2 identifiers: [X] Full Name [X] Date of [ ] [place] ID Card Emergency Plan: [place] confirmed and/or provided the following information in case of emergency or technology failure. PATIENT PHONE - PHONE NUMBER [CELLULAR] - Is patient phone number correct, if not, enter below: [place]'s phone number: Same SHAZIA CALERO [address] [place] [address], [id number] 's present location and address for appointment: Same as listed 's emergency contact name and phone number: Same as listed [place] reported that location is private and safe: Yes Informed Consent: [place] informed of the risks and benefits of Telehealth video care. [place] has the right to refuse video services. If refuses video visit, a [id number] visit will be scheduled. verbalized consent for this video visit: Yes [place] provided consent for any other persons present for visit: N/A If yes, who and relationship to patient: Secure visit: Visit was locked for security and privacy: Yes Parenting Group Length of session - 60 minutes Next group session on 04/17/2024 at 11:00am via VVC/Telehealth Julio C was one of five Veterans present for this day's Parenting group - the one-hundredth and sixteenth session since group resumed weekly group sessions - group convened via VVC/Telehealth. Initial portion of group session begins with Veterans, present this day, sharing their personal and family updates. We also remember group members unable to join us this morning due to travel/work, other appts, etc. Following check-in with each [place] present this day, group focus is upcoming holidays, extra time with children, given holidays and school vacations. At least two [place] parents speak to feeling need for break for themselves, recognizing children's energies and (appropriate) need for attention/care. All present this day speak to how they each navigate devoting time to children whilst taking care of themselves as parents. Some parents create 'alone' time, collaborating with their partner/spouses/co-parents for same in addition to couple having time to tend to their relationships as couples. Several share how they devote time to their children but also have learned to create signs /signals to children that Dad needs some alone time, it in the garage, outdoors, in the room. Importantly, we acknowledge the time and presence children must have with parents/carers, for optimal growth/development. Quick mention of book review for Marbella Rossi's book, The Book You Wish Your Parents Had Read (and Your Children Will be Glad That You Did) - book's focus being connection and attachment as vital prior any efforts towards correction/discipline. This attends Parenting Support group this morning, via VVC/Telehealth. He presents as consistently engaged and supportive - shares how he recently learned that plans to keep their five y.o. daughter home for all nine days of school upcoming holiday vacation, during which [place] was hopeful to have a day or two to rest in bed and to watch a movie. His peers were able to relate to [place]'s expressed wish, clearly empathizing with and offering their approaches for same. No other issues presented this day and no concern re: SI/HI. Related to: Service Connected Condition Diagnoses: Posttraumatic stress disorder ([facility] [id number]) - Post-traumatic stress disorder, unspecified (ICD-10-CM F43.10) (Primary) Procedures: Group Psychotherapy (other than of a Multiple-Family Group) - Clinical Trust Operations Assistant /roger/ DILIA MATTHEWS, [facility] Trust Operations Assistant Signed: 04/12/2024 12:59 YULIANA RICHTER
--- OUTSIDE RECORDS SUMMARY | 2024-04-24 07:00 | XMS_ITS | Encounter Summary ---
Author Name [facility] [place] [facility] [facility] [place] Address [address] [place] [address] Care Team Providers Care Front End Java Developer Name Role Phone AUGUSTTANYA Primary Care Provider [...] Taylor's Name Patient's Relationship to Policy Taylor [facility] Aug 25, 2021 [id number] [phone] [id number] [phone] Froy CALERO PATIENT [facility] Aug 01, 2014 [id number] [id number] [id number] Froy CALERO PATIENT Selected Encounter This section includes the information on record at [place] for the Encounter. Date/Time Encounter Type Encounter Description Reason Provider Source Apr 24, 2024 11:00 AM GROUP PS[facility]APY [facility] ICD-10-CM F43.10 Post-traumatic stress disorder, unspecified WIL RICHTER Encounter Template Text not used by [place] Assessments - Encounter Diagnoses This section includes the primary and secondary diagnoses documented for the Encounter. Date/Time Primary/Secondary Diagnosis Diagnosis Name Provider Source May 09, 2024 08:40 AM PRIMARY Post-traumatic stress disorder, unspecified YULIANA RICHTER Plan of Treatment: Future Appointments (+ 6 months) and Future Tests (+/- 45 days) The Plan of Treatment section includes future care activities for the [facility] [place] [facility] This section includes future appointments and future orders which are active, pending or scheduled. Future Appointments This section includes appointments that were scheduled to occur 6 months from the date of the Encounter, up to a maximum of 20 appointments. The data comes from all [place] treatment facilities. Appointment Date/Time Appointment Type Appointme nt Facility Name May 15, 2024 11:00 AM AMBULATORY - PSYCHIATRY [facility] May 29, 2024 11:00 AM AMBULATORY - PSYCHIATRY [facility] Jun 05, 2024 11:00 AM AMBULATORY - PSYCHIATRY [facility] Jun 06, 2024 10:00 AM AMBULATORY - MEDICINE [facility] Jun 12, 2024 11:00 AM AMBULATORY - PSYCHIATRY [facility] Jun 26, 2024 11:00 AM AMBULATORY - PSYCHIATRY [facility] Jul 10, 2024 11:00 AM AMBULATORY - PSYCHIATRY [facility] Jul 17, 2024 11:00 AM AMBULATORY - PSYCHIATRY [facility] Jul 31, 2024 11:00 AM [facility] Aug 21, 2024 11:00 AM AM[facility]ULATORY [facility] Aug 28, 2024 11:00 AM AM[place]ORY [place] [facility] [place] [facility] September 04, 2024 11:00 AM AM[facility] September 11, 2024 11:00 AM AMBULATORY [facility] Oct 02, 2024 11:00 AM AM[place]ORY [place] [facility] [place] [facility] Oct 09, 2024 11:00 AM AM[facility]UL[facility]ORY [facility] Oct 16, 2024 11:00 AM AMBULATORY [facility] Oct 23, 2024 11:00 AM AM[place]ULATORY [place]RY [place] [facility] [place] [facility] Social History: Smoking Status (Most current) and Tobacco Use (All prior to encounter date) This section includes the most current, and the historical, smoking and tobacco- related health factors from the [facility] facility where the Encounter took place. Current Smoking Status This section includes the most current smoking, or tobacco-related health factor, from the VA facility where the Encounter took place. Date/Time Current Smoking Status Comment Facil ity Apr 23, 2022 09:00 AM VA-TOBACCO FORMER USER [facility] Tobacco Use History This section includes a history of the smoking, or tobacco-related health factors, that were collected on or before the date of the Encounter. The data comes from the [place] facility where the Encounter took place. Date/Time Smoking Status/Tobacco Use Comment [facility] Apr 23, 2022 09:00 AM VA-TOBACCO QUIT 5 TO < 15 YRS [facility] September 24, 2020 11:00 AM VA-TOBACCO FORMER USER [facility] September 24, 2020 11:00 AM VA-TOBACCO QUIT 5 TO < 15 YRS [facility] Nov 10, 2018 08:07 AM VA-TOBACCO FORMER USER [facility] Nov 10, 2018 08:07 AM VA-TOBACCO QUIT 1 TO < 5 YRS [facility] Aug 06, 2017 02:39 PM QUIT TOBACCO USE 1-7 YEARS AGO [facility] Encounter Notes: All associated encounter notes This section contains the clinical notes associated to the Encounter. Date/Time Encounter Note(s) Provider Source Apr 24, 2024 11:11 PM SOCIAL WORK GROUP COUNSELING NOTE: LOCAL TITLE: SOCIAL WORK GROUP NOTE STANDARD TITLE: SOCIAL WORK GROUP COUNSELING NOTE DATE OF NOTE: APR 24, 2024@23:11 ENTRY DATE: APR 24, 2024@23:11:39 AUTHOR: YULIANA RICHTER EXP COSIGNER: URGENCY: STATUS: COMPLETED SOCIAL WORK GROUP NOTE Has ADDENDA [place] [facility] Connect ([facility]) Standard Documentation [facility] Clinician Resources Only: E911 (Emergency Call Relay Center): [phone] National Veterans Crisis Line - 988 then press #1. [place]CI Suicide Coordinator [phone], Ext. [phone]; Back-up Ext. [phone] [place] Police, Albina KENNEY [phone] Introduction: Visit is being conducted by [place] [employer] [facility]. [place] identified with 2 identifiers: [X] Full Name [X] Date of [ ] VA ID Card Emergency Plan: [place] confirmed and/or provided the following information in case of emergency or technology failure. PATIENT PHONE - PHONE NUMBER [CELLULAR] - Is patient phone number correct, if not, enter below: [place]'s phone number: Same SHAZIA CALERO [address] [place] [address], [id number] [place]'s present location and address for appointment: Same as listed [place]'s emergency contact name and phone number: Same as listed reported that location is private and safe: Yes Informed Consent: [place] informed of the risks and benefits of Telehealth video care. has the right to refuse video services. If refuses video visit, a endb-ly-vnbq visit will be scheduled. [place] verbalized consent for this video visit: Yes provided consent for any other persons present for visit: N/A If yes, who and relationship to patient: Secure visit: Visit was locked for security and privacy: Yes Parenting Group Length of session - 60 minutes All informed that there will be NO Parenting Group on 05/01/2024 at 11:00am - Next group session on 05/08/2024 at 11:00am via [employer]/TeleDrop Messages Julio C was one of five Veterans present for this day's Parenting group - the one-hundredth and eighteenth session since group resumed weekly group sessions - group convened via [employer]/TeleDrop Messages. Group session commences this day with welcoming new group participant and extending introductions. Then we resume weekly check-in with all Veterans, present this day, sharing their personal and family updates. We also remember group members unable to join us this morning due to travel/work, other appts, etc. Following check-in with each present this day, group focus resumes Veterans' plans and insights re: upcoming holidays, extra time with children, given holidays and school vacations. 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 In addition, one group participant speaks of his and his family's upcoming return to [facility] - a welcomed event by all within group. Another [place] shares of recent series of stressors with home appliance repair the same week in which he suffered the loss of a beloved pet dog due to age and health issues. All within group clearly relate to stressors of home issues as well as significant emotional loss of a beloved family pet. Some time as well devoted to upcoming holidays - two quotations shared with all, in advance of today's group session They won't know 'til they're grown, but their best gifts are the memories they're making. ~ Benoit Rose, 04/27/2011 One of the most glorious messes in the world is the mess created in the living room on . Don't clean it up too quickly. ~ Steven Rao This [place] attends Parenting Support group this morning, via VVC/Telehealth. He offers pleasant and real perspective on his overall experience in Parenting group as he introduces himself to newest group participant. looking forward to upcoming holiday time-off from work and able to spend time at home with his and daughter. No other issues presented this day and no concern re: SI/HI. Diagnoses: Posttraumatic stress disorder ([facility] [id number]) - Post-traumatic stress disorder, unspecified (ICD-10-CM F43.10) (Primary) Procedures: Group Psychotherapy (other than of a Multiple-Family Group) - Clinical Credit Counselor /roger/ DILIA MATTHEWS, ELSY Credit Counselor Signed: 04/28/2024 11:58 04/28/2024 ADDENDUM STATUS: COMPLETED was one of six Veterans present for this day's Parenting group on 04/24/2024 at 11:00am via VVC/Telehealth appt. /roger/ DILIA MATTHEWS, ELSY Credit Counselor Signed: 04/28/2024 13:12 YULIANA RICHTER
--- OUTSIDE RECORDS SUMMARY | 2024-06-06 06:00 | XMS_ITS | Encounter Summary ---
Author Name [facility] Organization [facility] [place] [facility] [place] Address [address] [place] [id number] Care Team Providers Care Business Dean Name Role Phone AUGUSTTANYA Primary Care Provider [...] Taylor's Name Patient's Relationship to Policy Taylor [facility] Aug 25, 2021 [id number] [phone] [id number] Froy CALERO PATIENT [facility] [place] PERSO NNEL Aug 01, 2014 [id number] [id number] [phone] [id number] Froy CALERO PATIENT Selected Encounter This section includes the information on record at [place] for the Encounter. Date/Time Encounter Type Encounter Description Reason Provider Source Jun 06, 2024 10:00 AM OFFICE O/P EST LOW 20 MIN PRIMARY CARE/MEDICINE ICD-10-CM F43.10 Post-traumatic stress disorder, unspecified MILLA GOMEZ Marck Encounter Template Text not used by [place] Assessments - Encounter Diagnoses This section includes the primary and secondary diagnoses documented for the Encounter. Date/Time Primary/Secondary Diagnosis Diagnosis Name Provider Source Jun 06, 2024 05:34 PM PRIMARY Post-traumatic stress disorder, unspecMILLA Delgadlilo [facility] Jun 06, 2024 05:34 PM SECONDARY Dorsalgia, unspecified MILLA GOMEZ Jun 06, 2024 05:34 PM SECONDARY Encounter for immunization MILLA GOMEZ Jun 06, 2024 05:34 PM SECONDARY Other bilateral secondary osteoarthritis of knee GOMEZMILLA Plan of Treatment: Future Appointments (+ 6 months) and Future Tests (+/- 45 days) The Plan of Treatment section includes future care activities for the [facility] [place] [facility] This section includes future appointments and future orders which are active, pending or scheduled. Future Appointments This section includes appointments that were scheduled to occur 6 months from the date of the Encounter, up to a maximum of 20 appointments. The data comes from all [place] [facility]. Appointment Date/Time Appointment Type Appointme nt Facility Name Jun 12, 2024 11:00 AM AMBULATORY - PSY[facility]ATRY [facility] Jun 26, 2024 11:00 AM AMBULATORY - [facility]IATRY [facility] Jul 10, 2024 11:00 AM AMBULATORY - [facility]ATRY [facility] Jul 17, 2024 11:00 AM AMBULATORY - [facility]IATRY [facility] Jul 31, 2024 11:00 AM [facility] Aug 21, 2024 11:00 AM [facility] [place] [facility] Aug 28, 2024 11:00 AM AM[facility]UL[facility]ORY [facility] [place] [facility] September 04, 2024 11:00 AM AM[facility]UL[facility] [place] [facility] September 11, 2024 11:00 AM AM[facility]ORY [facility] [place] [facility] Oct 02, 2024 11:00 AM AM[facility] [place] [facility] Oct 09, 2024 11:00 AM AM[facility]UL[facility]ORY [facility] [place] [facility] Oct 16, 2024 11:00 AM AM[facility] [place] [facility] Oct 23, 2024 11:00 AM AMBULATORY [facility] [place] [facility] Nov 13, 2024 11:00 AM AMBULATORY [facility] [place] [facility] Nov 27, 2024 11:00 AM AMBULATORY [facility] [place] [facility] Dec 04, 2024 11:00 AM [facility]UL[facility]ORY [facility] [place] Lab Results: +/- 30 days of the encounter This section includes the Chemistry and Hematology Lab Results on record with [place] for the patient. Radiology Reports and Pathology Reports are provided separately, in subsequent sections. Lab Results This section contains the Chemistry/Hematology Results that were resulted 30 days before or 30 daysafter the date of the Encounter. Date/Time Source Result Type Result - Unit Interpretation Reference Range Specimen Type Comment Jun 06, 2024 10:25 AM [facility] LIPID PANEL FASTING SERUM Specimen Ty pe: SERUM No comment entered. Ordering Provider: MILLA GOMEZ Report Released Date/Time: May 31, 2024 04:07 PM Reporting Lab: [address] [address] Performing Lab: [address] [address] CHOLESTEROL 192 mg/dL TRIGLYCERIDE 79 mg/dL 0-150 LDL calculated 114 mg/dL 0-129 CHOL/HDL 3.1 HDL CHOLESTEROL 62 mg/dL H 40-60 Jun 06, 2024 10:25 AM [facility] LIVER FUNCTION SERUM Specimen Type: SERUM No comment entered. Ordering Provider: MILLA GOMEZ Report Released Date/Time: May 31, 2024 04:07 PM Reporting Lab: [address] [address] Performing Lab: [address] [address] PROTEIN,TOTAL 7.2 g/dL 6.0-8.3 ALBUMIN 4.5 g/dL 3.5-5.0 ALKALINE PHOSPHATASE 59 U/L 40-150 AST 19 U/L 5-34 ALT 19 U/L BILIRUBIN, TOTAL 1.6 mg/dL H 0.2-1.2 BILIRUBIN, DIRECT 0.5 mg/dL 0-0.5 Jun 06, 2024 10:25 AM [facility] HEMOGLOBIN A1C PANEL BLOOD Specimen T ype: BLOOD Comment: Values obtained from A1C measurements can vary. For atypical A1C assays, a reported value of 7.0 could actually be between 6.72 and 7.28 if measured by a reference method. A reported value of 9.0 could actually be between 8.73 and 9.27. Ref: http://www.ngsp.org/CAPdata.asp Ordering Provider: MILLA GOMEZ Report Released Date/Time: May 31, 2024 04:07 PM Reporting [facility] [address] [address] Performing Lab: [facility] [address] [address] HEMOGLOBIN A1C 5.3 4.0-5.6 Jun 06, 2024 10:25 AM [facility] TSH SERUM Sp ecimen Type: SERUM No comment entered. Ordering Provider: MILLA GOMEZ Report Released Date/Time: May 31, 2024 04:07 PM Reporting Lab: [facility] [address] [address] Performing Lab: [facility] [address] [address] TSH 1.82 u[IU]/mL 0.35-5.00 Jun 06, 2024 10:25 AM [facility] CBC AND DIFF (AUTO) BLOOD Specimen Ty pe: BLOOD No comment entered. Ordering Provider: MILLA GOMEZ Report Released Date/Time: May 31, 2024 04:07 PM Reporting [facility]: [facility] [address] [address] Performing Lab: [facility] [address] [address] WBC 5.44 10*3/uL 4.50-11.00 RBC 5.33 10*6/uL 4.23-5.66 HGB 15.6 g/dL 12.8-17 HCT 45.3 39.2-50.4 MCV 85.0 fL 82-99 MCHC 34.4 g/dL 30.8-35.1 PLT 267 10*3/uL 140-360 RDW-CV 12.0 12.0-16.0 MONO, ABS 0.37 10*3/uL 0.30-1.10 MCH 29.3 pg 26.2-32.6 NEUT % 47.4 43.7-75.8 LYMPH % 42.5 H 14.0-42.3 MONO % 6.8 5.1-13.7 EOS % 2.2 0.4-6.8 BASO % 0.9 0.1-2.0 NEUT, ABS 2.58 10*3/uL 2.20-7.60 LYMPH, ABS 2.31 10*3/uL 1.00-3.20 EOS, ABS 0.12 10*3/uL 0.03-0.44 BASO, ABS 0.05 10*3/uL 0.01-0.13 IMMATURE GRAN % 0.2 0.0-0.7 IMMATURE GRAN, ABS 0.01 10*3/uL 0.00-0.0 6 NRBC % 0.0 0.0-0.0 NRBC, ABS 0.00 10*3/uL 0.00-0.00 Jun 06, 2024 10:25 AM [facility] BASIC METABOLIC PANEL (fasting) SERUM Specimen Type: SERUM No comment entered. Ordering Provider: MILLA GOMEZ Report Released Date/Time: Jun 06, 2024 10:06 AM Reporting Lab: [facility] [address] [facility] [address] Performing Lab: [address] [address] UREA NITROGEN 20 mg/dL 7-25 GLUCOSE 93 mg/dL 65-100 SODIUM 137 mmol/L 135-145 POTASSIUM 4.5 mmol/L 3.5-5.0 CHLORIDE 102 mmol/L 100-110 CO2 25 meq/L 20-30 CREATININE, Serum 0.98 mg/dL 0.50-1.40 eGFR(CKD-EPI 2020) >90 mL/min >60 Vital Signs: All taken on the encounter date This section contains inpatient and outpatient Vital Signs collected on the date of the Encounter. Date/Time Temperature Pulse Blood Pressure Respiratory Rate SP02 Pain Height Weight Body Mass Index Source Jun 06, 2024 10:09 AM 97.3 64 126/75 99 189 [address] [facility] Social History: Smoking Status (Most current) and Tobacco Use (All prior to encounter date) This section includes the most current, and the historical, smoking and tobacco- related health factors from the [place] facility where the Encounter took place. Current Smoking Status This section includes the most current smoking, or tobacco-related health factor, from the [place] facility where the Encounter took place. Date/Time Current Smoking Status Comment [place] ity Apr 23, 2022 09:00 AM VA-TOBACCO FORMER USER [facility] Tobacco Use History This section includes a history of the smoking, or tobacco-related health factors, that were collected on or before the date of the Encounter. The data comes from the [place] facility where the Encounter took place. Date/Time Smoking Status/Tobacco Use Comment F acility Apr 23, 2022 09:00 AM VA-TOBACCO QUIT 5 TO < 15 YRS [facility] September 24, 2020 11:00 AM VA-TOBACCO FORMER USER [facility] September 24, 2020 11:00 AM VA-TOBACCO QUIT 5 TO < 15 YRS [facility] Nov 10, 2018 08:07 AM VA-TOBACCO FORMER USER [facility] Nov 10, 2018 08:07 AM VA-TOBACCO QUIT 1 TO < 5 YRS [facility] Aug 06, 2017 02:39 PM QUIT TOBACCO USE 1-7 YEARS AGO [facility] Encounter Notes: All associated encounter notes This section contains the clinical notes associated to the Encounter. Date/Time Encounter Note(s) Provider Source Jun 06, 2024 10:24 AM PRIMARY CARE NURSE PRACTITIONER OUTPATIENT NOTE: LOCAL TITLE: NURSE PRACTITIONER OUTPATIENT NOTE STANDARD TITLE: PRIMARY CARE NURSE PRACTITIONER OUTPATIENT NOTE DATE OF NOTE: JUN 06, 2024@10:24 ENTRY DATE: JUN 06, 2024@10:24:47 AUTHOR: MILLA GOMEZ COSIGNER: URGENCY: STATUS: COMPLETED PRIMARY CARE VISIT SHAZIA LIANNA CALERO, is a 38 yo WHITE MALE who [facility] at the [place] [facility]. TYPE OF VISIT: Face to face 38-year-old male with PTSD, chronic back pain, and history of snoring presented to the outpatient clinic in regular follow-up. He was last seen in primary care by Dr. Madsen in April 2022. He is comanaged with a community PCP whom he sees regularly. No concerns today; no recent illnesses or injuries. No recent labs to review. A comprehensive chart review was conducted. He is not maintained on any medications. HEALTHCARE PROVIDERS: Community PCP: Stanley Garzon NP MH: [facility] therapist Social Hx: The is and lives with his and 5-year-old daughter. No nicotine. He drinks 1 or 2 alcoholic beverages twice weekly. He smokes marijuana daily. 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 For exercise he chases his 5-year-old according to him. No longer attends the gym. Family history: Father: Alive, age 61. Chronic MSK issues. Mother: Alive, age 61. Diabetes, skin cancer. Maternal grandmother: CAD Maternal grandfather CAD/[place] x 3. First [place] in his 50s or 60s. HISTORY: PERIOD OF SERVICE - [employer] FROM May TO Oct COMBAT SERVICE INDICATED: No MEDICAL HISTORY Active Problem Posttraumatic stress disorder F43.1 07/08/2023 AIDA JC Snoring R06.83 07/08/2023 AIDA JC Impaired fasting glucose R73.01 07/08/2023 AIDA JC Back pain M54.9 07/08/2023 AIDA JC Sleep disorder G47.9 06/21/2023 AIDA JC Bilateral osteoarthritis of knees Z 04/23/2022 RINA MADSEN Bilateral osteoarthritis of knees M 04/23/2022 RINA MADSEN outside provider R69. 07/08/2023 AIDA JC VITAL SIGNS: Temperature 97.3 F [36.3 C] (06/06/2024 10:09) Blood Pressure 126/75 (06/06/2024 10:09) Pulse 64 (06/06/2024 10:09) Respiration 16 (07/15/2023 14:58) Pain 0 (07/15/2023 14:58) BMI BMI: 27.2 Weight 189 lb [85.73 kg] (06/06/2024 10:09) Pulse Oximetry 99% (06/06/2024 10:09) ASSISTIVE DEVICES: None REVIEW OF SYSTEMS: CONSTITUTIONAL: No fevers, chills, weight loss/gain ENT: No sore throat, sneezing, congestion, rhinorrhea, anosmia, or ageusia. CARDIOVASCULAR: No chest pain, palpitations, or increased pedal edema RESPIRATORY: No SOB, cough, sputum, wheeze. GASTROINTESTINAL: Denies abd pain, N/V/D. No melena or hematochezia. No tenesmus or constipation. GENITOURINARY: No burning micturition. No urinary frequency or urgency. No nocturia. MUSCULOSKELETAL: No myalgias or arthralgias. PSYCHIATRIC: No new anxiety or depression. No sleep disturbance. NEUROLOGIC: No headaches, dizziness, numbness or tingling in the extremities, or unilateral weakness. EXAMINATION General: Well-appearing in no obvious distress. Mental Status: Alert and oriented x4. Head: Normocephalic. Eyes: PERRLA. EOMI. Anicteric sclerae. ENT: Moist oral mucosa. Posterior pharynx unremarkable Neck: Supple. No JVD. No thyromegaly or LAD. No bruit. Lungs: CTA. Normal chest excursion. Eupneic respirations. CV: Heart tones S1, S2. RRR. No M/G/R. No peripheral edema GI: Abdomen is soft and nontender. No HSM or mass. : No CVA tenderness. Ext: No cyanosis or clubbing. No gross deformities. Neuro: CN II through XII grossly intact. Normal speech. Normal gait. Integument: Skin warm and dry. No concerning lesions or rashes. Psych: Normal mood and affect. Normal judgment. ALLERGIES: ========= Patient has answered NKA >> HEALTH MAINTENANCE PREVENTIVE MEDICINE GOALS Info Only: [place] Video Connect Capable DUE NOW Hepatitis C Testing DUE NOW Mental Health Treatment Plan DUE NOW Influenza Immunization DUE NOW Medication Reconciliation DUE NOW Tdap Immunization DUE NOW (Optional) Whole Health Documentation DUE NOW ASSESSMENT/PLAN: Active problems - Computerized Problem List is the source for the following: Posttraumatic stress disorder: Following with [place] mental health and has therapy in the community. Negative SI/HI. Back pain: Uses OTC NSAIDs as needed for symptomatic relief. Bilateral osteoarthritis of knees: Bilateral osteoarthritis of knees: Uses OTC NSAIDs as needed for symptomatic relief. FOLLOW UP: RTC Below & sooner PRN UPCOMING APPOINTMENTS: 11/27/2024 13:00 CWM/SO/PACT 1 CUSTOM GARMENT DESIGNER 25 minutes spent in patient evaluation, data review, and patient education. All medications were reconciled during this visit. No barriers; Patient understands and agrees to current treatment plan. If pt has any questions, concerns, or changes in current health status he/she will call or come in to the [facility]. Hepatitis C Testing: Patient has given verbal consent for HCV antibody testing. An HCV lab test has been ordered - see orders tab. Medication Reconciliation: Outpatient: Has the patient been taking medications as documented in the EMLR? YES: The patient has been taking medications as documented in the EMLR. Essential Medication List for Review used to complete this medication reconciliation. INCLUDED IN THIS LIST: Alphabetical list of active outpatient prescriptions dispensed from this [place] (local) and dispensed from another [place] or [facility]D facility (remote) as well as inpatient orders (local, pending and active), local clinic medications, locally documented non-VA medications, and local prescriptions that have or been discontinued in the past 90 days. - All changes in medications, including all non-VA/Herbal/OTC medications were entered into CPRS. Changes: Note that the patient takes no prescription medications. - If there were any medications the patient should no longer take, they were discontinued. - The patient/caregiver was instructed to update this list, discard old lists, and take this list to the next appointment, whether with a VA or non-VA provider. /roger/ MILLA GOMEZ NP NURSE PRACTITIONER Signed: 06/06/2024 17:34 MILLA GOMEZ
[2025-01-03 08:21] VITALS: BP 112/70; PULSE 75; RESP 16; TEMP 36.9; O2SAT 98; BMI 26.8
--- NOTE | 2025-01-03 08:21 | MHC.PC.OV ---
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 Accompanied by: Self / Same As Patient Allergies No Known Allergies Allergy (Verified 01/03/25 08:25) Medication List - Last Reconciled 01/03/25 by SHERRI Lucas No Known Home Meds Tobacco use date assessed: 01/03/25 Dental Screening Dental Screen Date: 01/03/25 Did you have a dental visit in the last 12 months?: Yes Did you have a dental problem in the last 6 months where you did not have access to dental care?: No Was dental information given to patient?: Patient has dentist HPI PE HPI Details History of Present Illness The patient is a 39-year-old male presenting for an annual physical examination. He denies experiencing any chest pain, dyspnea, abdominal pain, hematochezia, constipation, diarrhea, or suicidal ideation. His recent laboratory results were generally impressive, except for a fasting blood glucose level of 104 mg/dL. He acknowledges the need to improve his dietary habits and maintains a fairly active lifestyle. Health Maintenance - Annual physical examination - Dietary modifications to address elevated fasting blood glucose Social History - Exercise: Fairly active lifestyle Review of Systems - Cardiovascular: Denies chest pain - Respiratory: Denies dyspnea - Gastrointestinal: Denies abdominal pain, hematochezia, constipation, diarrhea - Psychiatric: Denies suicidal ideation or HI Physical Exam General: Cooperative, healthy appearing, comfortable, no acute distress and well developed Orientation: Patient oriented x3 Limitations: No limitations Head: Normal to inspection Ears: Hearing grossly normal bilaterally Nose: Normal external nose present Face and sinus: Normal facial exam Eyes: Appearance normal, both eyes and all related structures Neck: Normal visual inspection and Yes full ROM Respiratory: Normal respiratory effort and able to speak in complete sentences. Clear to auscultation bilaterally Cardiovascular: Regular rate and rhythm. Normal S1 and S2 GI: Normal to inspection. Soft to palpation and nontender : Testicles without masses/lesions and no hernias appreciated Skin: No rashes or lesions noted Neuro: Patient oriented x3 Extremities: Normal to inspection Results - Labs: Fasting blood glucose 104 mg/dL 1. Elevated Fasting Blood Glucose The patient has an elevated fasting blood glucose level of 104 mg/dL, indicating the need for dietary modifications to prevent progression to diabetes. He is advised to follow up in one year for reassessment. Discussion Notes During the visit, I discussed with the patient the importance of dietary modifications to address his elevated fasting blood glucose level. We agreed on a follow-up in one year to monitor his progress and reassess his condition. Patient Instructions - Work on improving your diet to manage blood sugar levels. - Maintain your active lifestyle. - Schedule a follow-up appointment in one year. [facility] Medical History No significant past medical history Surgical History H/O vasectomy H/O ventral hernia repair History of hand surgery Family History Maternal Grandmother Lung cancer Maternal Grandfather Leukemia Mother Skin cancer Social History Housing: House Are you a primary patient care manager to a significant other at home: No Do you presently have visiting nurse or other home services: No Patient Tobacco Use Status: Former Tobacco user Tobacco use type: Cigarette Years Smoked: 5 years ago e-Cigarette/Vaping Use: Never Used Second Hand Smoke Exposure: No service: Yes Current occupational status: employed Current occupation: [employer] Current occupational exposures/hazards: No Cognitive needs: No Hearing needs: No Vision needs: No Questionnaire PHQ-9 Over the last 2 weeks, how often have you been bothered by any of the following problems? 1. Little interest or pleasure in doing things: not at all 2. Feeling down, depressed, or hopeless: not at all 3. Trouble falling or staying asleep, or sleeping too much: several days 4. Feeling tired or having little energy: not at all 5. Poor appetite or overeating: not at all 6. Feeling bad about yourself - or that you are a failure or have let yourself or your family down: not at all 7. Trouble concentrating on things, such as reading the newspaper or watching television: not at all 8. Moving or speaking so slowly that other people could have noticed. Or the opposite - being so fidgety or restless that you have been moving around a lot more than usual: not at all 9. Thoughts that you would be better off or of hurting yourself in some way: not at all Total score: 1 Depression Screening Interpretation: Negative Depression Screening Done: Yes 69840 - PHQ-9 Billing: Yes Source: Developed by Drs. John Wilhelm, Vandana العلي, Cristi Winters and colleagues, with an educational sintia from [employer]. Thrive Questionnaire Date Thrive assessed: 12/27/24 I am a: Patient What is your living situation today?: I have a steady place to live Within the past 12 months, did the food you bought not last and you didn't have the money to get more?: Never true Within the past 12 months, did you worry whether your food would run out before you got money to buy more?: Never true Do you have trouble paying for medicines?: No Do you have trouble getting transportation to medical appointments?: No Do you have trouble paying your heating and electricity bill?: No Do you have trouble taking care of your child, family member or friend?: No Do you have trouble with day-to-day activities such as bathing, preparing meals, shopping, managing finances, etc.?: No Are you currently unemployed and looking for a job?: No Are you interested in more education?: No Please select the resources that you would like help with: None Currently or been in a relationship where the following occur: No concerns reported THRIVE Score: 0 AUDIT C Alcohol Use Questionnaire (AUDIT-C) 1. How often do you have a drink containing alcohol?: 2-4 times a month 2. How many drinks containing alcohol do you have on a typical day when you are drinking?: 1 or 2 3. How often do you have six or more drinks on one occasion?: Less than monthly Total Score: 3 REVA-7 AMB Questionnaire REVA-7 Date REVA - 7 assessed: 01/03/25 Feeling nervous, anxious, or on edge: 0 = Not at all Not being able to stop or control worryin = Not at all Worrying too much about different things: 0 = Not at all Trouble relaxin = Several days Being so restless that it is hard to sit still: 0 = Not at all Becoming easily annoyed or irritable: 0 = Not at all Feeling afraid as if something awful might happen: 0 = Not at all Total REVA-7 score (0-4 normal; 5-9 mild; 10-14 moderate; 15-21 severe): 1 Source: Developed by Drs. John Wilhelm, Vandana العلي, Cristi Winters and colleagues, with an educational sintia from [employer]. REVA-7 Assessment Billing REVA-7 Assessment Tool: REVA-7 Assessment 65089 Physical exam (Primary Care) Vital Signs: Last Vital Signs Temp 98.5 F 01/03/25 08:21 Pulse 75 01/03/25 08:21 Resp 16 01/03/25 08:21 BP 112/70 01/03/25 08:21 Pulse Ox 98 01/03/25 08:21 Oxygen Delivery Method Room Air 01/03/25 08:21 BMI result Body Mass Index 26.8 Tobacco/Smoking Status: Tobacco use Status Tobacco use date assessed 01/03/25 01/03/25 08:28 Patient Tobacco Use Status Former Tobacco user 01/03/25 08:28 Tobacco use type Cigarette 01/03/25 08:28 e-Cigarette/Vaping Use Never Used 01/03/25 08:28 PHQ-9: PHQ-9 Score PHQ-9: Total score 1 01/03/25 08:28 Depression Screening Interpretation: Negative Thrive Assessment: Date of Thrive Assessment Date Thrive assessed 12/27/24 01/03/25 08:28 Currently or been in a relationship where the following occur: No concerns reported Coding Level of Care Code Est Pt Prev Care 40-64y(27590) Diagnoses Physical exam Z00.00 Additional Codes REVA-7 Assessment Billing - REVA-7 Assessment Tool: REVA-7 Assessment 89386 ([id number]) PHQ-9 - 08681 - PHQ-9 Billing: Yes ([id number]) Assessment & Plan Assessment & Plan (1) Physical exam: Code(s): Z00.00 - Encounter for general adult medical examination without abnormal findings Category: Medical Plan .
--- OUTSIDE RECORDS SUMMARY | 2025-01-03 08:26 | XMS_ITS | Continuity of Care Document ---
Author Name [facility] Organization [facility] Care Team Providers Care Ell Tutor Name Role Phone [facility] Unavailable Unavailable Problems Combined list of problems from Department of Defense and Veterans Affairs facilities. It does not include entries that were removed or entered in error. Problem Status Onset Date Problem Type Date of Resolution Comments Source Back pain Active Condition Jul 07 Entered By: AIDA JC Comment: Accupuncture has been helpful [place] Bilateral osteoarthritis of knees Active Condition [facility] Impaired fasting glucose Active Condition [place] outside provider Active Condition Jul 08, 2023 Entered By: AIDA JC Comment: PCP:BRIDGETTE Serna [facility] [facility] Posttraumatic stress disorder Active Condition [facility] Sleep disorder Active Condition Jun 032023 Entered By: AIDA JC Comment: No DARLENE by Sleep Study Apr 2023 [place] Snoring Active Condition [place] NICOTINE DEPENDENCE Active Condition [facility] ALCOHOL ABUSE Active Condition [facility] visit for: psychiatric exam requested by authority Inactive Condition [facility] NO PSYCHIATRIC DIAGNOSIS OR CONDITION ON AXIS I Inactive Condition [facility] CONDITIONS INFLUENCING HEALTH STATUS Active Condition [facility] ADJUSTMENT DISORDER WITH DEPRESSED MOOD Active Condition [facility] nausea with vomiting Inactive Condition [facility] Vaccines Prophylactic Need Against Bacterial Diseases Inactive Condition [facility] visit for: issue repeat prescription Active Condition [facility] DERMATITIS Inactive Condition [facility] Macules And Papules Active Condition [facility] tobacco use Active Condition [facility] CONTACT DERMATITIS Inactive Condition [facility] Need For Vaccination Typhoid Active Condition [facility] Vaccines Prophylactic Need Active Condition [facility] visit for: screening exam Active Condition [facility] visit for: follow-up exam Inactive Condition [facility] visit for: screening exam pulmonary tuberculosis Active Condition [facility] visit for: administrative purpose Inactive Condition [facility] Back Muscle Spasm Inactive Condition [facility] skin: a rash [as Sx] Active Condition [facility] visit for: services physical Active Condition [facility] [place] Inactive Condition [facility] Other Physical Therapy Active Condition [facility] [place] INTEROSSEOUS LIGAMENT RIGHT Active Condition [facility] [place] RIGHT Inactive Condition Pt to continue with HEP, discontinue active rehab. Begin walk to run program as discussed. F/U 3-4 weeks as needed.Goals: Unchanged [facility] vomiting Inactive Condition [facility] diarrhea Active Condition [facility] KNEE [place]AIN Active Condition [facility] Vaccines Prophylactic Need Against Influenza Inactive Condition [facility] visit for: services physical accession Active Condition forms completedno acute problems [facility] visit for: examination of subpopulation Active Condition [facility] visit for: ears / hearing exam Active Condition [facility] CONTUSION WITH INTACT SKIN SURFACE - RIGHT LITTLE FINGER Inactive Condition [facility] visit for: occupational health / fitness exam Active Condition [facility] Diagnosis: ICD-10-CM F43.10 Post-traumatic stress disorder, unspecified Active Diagnosis [place] Diagnosis: ICD-10-CM R06.83 Snoring Active Diagnosis [facility] Diagnosis: ICD-10-CM F43.23 Adjustment disorder with mixed anxiety and depressed mood Active Diagnosis [facility] [place] Allergies, Adverse Reactions, Alerts Combined list of allergies from Department of Defense and Veterans Affairs facilities. It does not include entries that were removed or entered in error. Substance Category Reaction Severity Reaction type Status Date Reported Comments Source No Known Allergies Drug allergy (disorder) active 01/19/2008 [facility] Immunizations Combined list of available immunizations from the Department of Defense and Veterans Affairs facilities. Immunization Series Date Given Administered By Site Reaction Lot Number CVX Code Drug Sinter Press Operator Status Comments Source INFLUENZA, INJECTABLE, QUADRIVALENT, PRESERVATIVE FREE 2021 COMFORT CARDENAS LEFT DELTO ID [id number] complet ed [facility] COVID-19 (PFIZER), MRNA, LNP-S, PF, 30 MCG/0.3 ML DOSE 2 2020 208 complet ed [facility] COVID-19 (PFIZER), MRNA, LNP-S, PF, 30 MCG/0.3 ML DOSE 1 2019 208 complet ed [facility] INFLUENZA, UNSPECIFIED FORMULATION 2019 88 complet ed [facility] INFLUENZA, SEASONAL, INJECTABLE 2016 141 complet ed [facility] TD(ADULT) UNSPECIFIED FORMULATION 2015 139 complet ed [facility] tetanus and diphtheria toxoids, adsorbed, preservative free, for adult use (2 Lf of tetanus toxoid and 2 Lf of diphtheria toxoid) 1 2010 UNK 09 Unknown (UNK) comple t ed tetanus and diphtheri a toxoids, adsorbed, preservat edwin free, for adult use (2 Lf of tetanus toxoid and 2 Lf of diphtheri a toxoid) DoD typhoid Vi capsular polysaccharid e vaccine 1 2010 UNK 101 Unknown (UNK) comple t ed typhoid Vi capsular polysacch aride vaccine DoD anthrax vaccine 4 2010 UNK 24 Unknown (UNK) comple t ed anthrax vaccine DoD influenza virus vaccine, live, attenuated, for intranasal use 1 2009 [id number] Unknown (UNK) comple t ed influenza virus vaccine, live, attenuate d, for intranasa l use DoD anthrax vaccine 3 2009 AJAY WARD N 24 [employer] ([facility]) complet ed anthrax vaccine DoD anthrax vaccine 3 2009 [id number] [employer] ([facility]) complet ed anthrax vaccine DoD Novel influenza-H1N 1-09, injectable 1 2008 [id number] 127 [employer]. (NOV) complet ed Novel influenza -K6G0-18, injectabl e DoD anthrax vaccine 2 2008 UNK 24 [employer] ([facility]) complet ed anthrax vaccine DoD influenza virus vaccine, live, attenuated, for intranasal use 1 2008 UNK 111 Unknown (UNK) comple t ed influenza virus vaccine, live, attenuate d, for intranasa l use DoD anthrax vaccine 1 2008 [id number] [employer] ([facility]) complet ed anthrax vaccine DoD typhoid Vi capsular polysaccharid e vaccine 1 2008 [id number] Sanofi Pasteur (PMC) complet ed typhoid Vi capsular polysacch aride vaccine DoD tuberculin skin test; purified protein derivative solution, intradermal 1 2008 MICHAEL GARRISON [id number] [employer] ([employer]) complet ed tuberculi n skin test; purified protein derivativ e solution, intraderm al DoD influenza virus vaccine, live, attenuated, for intranasal use 1 2007 RAYSHAWN ELDER [id number] [employer] (MED) complet ed influenza virus vaccine, live, attenuate d, for intranasa l use DoD varicella virus vaccine 1 2007 UNK 21 Unknown (UNK) Not Given varicella virus vaccine DoD influenza virus vaccine, live, attenuated, for intranasal use 1 2006 RAYSHAWN ELDER [id number] 111 [employer], [employer]. (MED) complet ed influenza virus vaccine, live, attenuate d, for intranasa l use DoD influenza virus vaccine, live, attenuated, for intranasal use 1 2005 [id number] 111 [employer]. (MED) complet ed influenza virus vaccine, live, attenuate d, for intranasa l use DoD typhoid Vi capsular polysaccharid e vaccine 1 2005 [id number] 101 Sanofi Pasteur (PMC) complet ed typhoid Vi capsular polysacch aride vaccine DoD influenza virus vaccine, split virus (incl. purified surface antigen)-reti red CODE 1 2005 UNK 15 [employer] (AVB) complet ed influenza virus vaccine, split virus (incl. purified surface antigen)- retired CODE DoD DTAP, UNSPECIFIED FORMULATION 2005 107 complet ed [facility] anthrax vaccine 1 2004 NONE 24 (NON) complet ed anthrax vaccine DoD vaccinia (smallpox) vaccine 1 2004 [id number] WyjessicaGaetano (WAL) complet ed vaccinia (smallpox ) vaccine DoD typhoid Vi capsular polysaccharid e vaccine 1 2004 [id number] Aviron (ALEXANDER) complet ed typhoid Vi capsular polysacch aride vaccine DoD vaccinia (smallpox) vaccine 1 2004 UNK 75 Unknown (UNK) comple t ed vaccinia (smallpox ) vaccine DoD influenza virus vaccine, split virus (incl. purified surface antigen)-reti red CODE 1 2004 UNK 15 Unknown (UNK) comple t ed influenza virus vaccine, split virus (incl. purified surface antigen)- retired CODE DoD hepatitis B vaccine, adult dosage 3 2004 UNK 43 Unknown (UNK) comple t ed hepatitis B vaccine, adult dosage DoD hepatitis A vaccine, adult dosage 3 2004 UNK 52 Unknown (UNK) comple t ed hepatitis A vaccine, adult dosage DoD hepatitis A and hepatitis B vaccine 2 2003 [id number] 104 Unknown (UNK) complet ed hepatitis A and hepatitis B vaccine DoD hepatitis B vaccine, adult dosage 2 2003 UNK 43 Unknown (UNK) comple t ed hepatitis B vaccine, adult dosage DoD hepatitis A vaccine, adult dosage 2 2003 UNK 52 Unknown (UNK) comple t ed hepatitis A vaccine, adult dosage DoD measles, mumps and rubella virus vaccine 1 2003 [id number] Merck (MSD) complet ed measles, mumps and rubella virus vaccine DoD tetanus and diphtheria toxoids, adsorbed, preservative free, for adult use (2 Lf of tetanus toxoid and 2 Lf of diphtheria toxoid) 1 2003 [id number] 09 Unknown (UNK) comple t ed tetanus and diphtheri a toxoids, adsorbed, preservat edwin free, for adult use (2 Lf of tetanus toxoid and 2 Lf of diphtheri a toxoid) DoD poliovirus vaccine, inactivated 1 2003 [id number] 10 Unknown (UNK) comple t ed polioviru s vaccine, inactivat ed DoD influenza virus vaccine, split virus (incl. purified surface antigen)-reti red CODE 1 2003 [id number] 15 Unknown (UNK) comple t ed influenza virus vaccine, split virus (incl. purified surface antigen)- retired CODE DoD meningococcal polysaccharid e vaccine (MPSV4) 1 2003 [id number] 32 Unknown (UNK) comple t ed meningoco ccal polysacch aride vaccine (MPSV4) DoD hepatitis B vaccine, adult dosage 1 2003 [id number] 43 Unknown (UNK) complet ed hepatitis B vaccine, adult dosage DoD hepatitis A vaccine, adult dosage 1 2003 [id number] 52 Unknown (UNK) complet ed hepatitis A vaccine, adult dosage DoD Results Combined list of recent chemistry, hematology and other laboratory results from Department of Defense and Veterans Affairs, ranging from 15 months to all on record, depending upon the facility. Order Name Results Value Reference Range Date Interpretation Specimen Comments Source LIPID PANEL FASTING CHOLESTEROL [MASS/VOLUM E] IN SERUM OR PLASMA 192 mg/dL 06/06 Specimen Type: SERUM No comment entered. Ordering Provider: SHAYNE GOMEZ A Report Released Date/Time: May 31, 2024 04:07 PM Reporting Lab: [address] [address] Performing Lab: [address] [address] [facility] [place] LIPID PANEL FASTING TRIGLYCERID E [MASS/VOLUM E] IN SERUM OR PLASMA 79 mg/dL 0 - 150 06/06 Specimen Type: SERUM No comment entered. Ordering Provider: SHAYNE GOMEZ A Report Released Date/Time: May 31, 2024 04:07 PM Reporting Lab: [address] [address] Performing Lab: [address] [address] [facility] LIPID PANEL FASTING CHOLESTEROL IN LDL [MASS/VOLUM E] IN SERUM OR PLASMA BY CALCULATION 114 mg/dL 0 - 129 06/06 Specimen Type: SERUM No comment entered. Ordering Provider: SHAYNE GOMEZ A Report Released Date/Time: May 31, 2024 04:07 PM Reporting Lab: [address] [address] Performing Lab: [address] [address] [facility] LIPID PANEL FASTING CHOLESTEROL .TOTAL/CHOL ESTEROL IN HDL [MASS RATIO] IN SERUM OR PLASMA 3.1 06/06 Specimen Type: SERUM No comment entered. Ordering Provider: SHAYNE GOMEZ A Report Released Date/Time: May 31, 2024 04:07 PM Reporting Lab: [address] [address] Performing Lab: [address] [address] [place] [place] LIPID PANEL FASTING CHOLESTEROL IN HDL [MASS/VOLUM E] IN SERUM OR PLASMA 62 mg/dL 40 - 60 06/06 H Specimen Type: SERUM No comment entered. Ordering Provider: SHAYNE GOMEZ A Report Released Date/Time: May 31, 2024 04:07 PM Reporting Lab: [facility] [address] [facility] [address] Performing [facility]: [facility] [place] [address] [address] [place] LIVER FUNCTION PROTEIN [MASS/VOLUM E] IN SERUM OR PLASMA 7.2 g/dL 6.0 - 8.3 06/06 Specimen Type: SERUM No comment entered. Ordering Provider: SHAYNE GOMEZ A Report Released Date/Time: May 31, 2024 04:07 PM Reporting Lab: [facility] [place] [address] [address] Performing Lab: [facility] [address] [place] LIVER FUNCTION ALBUMIN [MASS/VOLUM E] IN SERUM OR PLASMA 4.5 g/dL 3.5 - 5.0 06/06 Specimen Type: SERUM No comment entered. Ordering Provider: SHAYNE GOMEZ A Report Released Date/Time: May 31, 2024 04:07 PM Reporting Lab: [facility] [address] Performing Lab: [facility] [address] [place] LIVER FUNCTION ALKALINE PHOSPHATASE [ENZYMATIC ACTIVITY/VO LUME] IN SERUM OR PLASMA 59 U/L 40 - 150 06/06 Specimen Type: SERUM No comment entered. Ordering Provider: SHAYNE GOMEZ A Report Released Date/Time: May 31, 2024 04:07 PM Reporting Lab: [facility] [place] [address] [address] Performing Lab: [facility]ITALRDECAT[facility]GAN [facility]OSPITALTRN [facility] [address] [place] LIVER FUNCTION ASPARTATE AMINOTRANSF ERASE [ENZYMATIC ACTIVITY/VO LUME] IN SERUM OR PLASMA 19 U/L 5 - 34 06/06 Specimen Type: SERUM No comment entered. Ordering Provider: SHAYNE GOMEZ A Report Released Date/Time: May 31, 2024 04:07 PM Reporting Lab: [facility] [address] [address] Performing Lab: [facility] [place] [address] [address] [place] LIVER FUNCTION ALANINE AMINOTRANSF ERASE [ENZYMATIC ACTIVITY/VO LUME] IN SERUM OR PLASMA 19 U/L 06/06 Specimen Type: SERUM No comment entered. Ordering Provider: SHAYNE GOMEZ A Report Released Date/Time: May 31, 2024 04:07 PM Reporting Lab: [facility] [place] [address] [address] Performing Lab: [facility] [place] [address] [place] LIVER FUNCTION BILIRUBIN.T OTAL [MASS/VOLUM E] IN SERUM OR PLASMA 1.6 mg/dL 0.2 - 1.2 06/06 H Specimen Type: SERUM No comment entered. Ordering Provider: SHAYNE GOMEZ A Report Released Date/Time: May 31, 2024 04:07 PM Reporting Lab: [facility] [place] [address] [address] Performing Lab: [facility] [address] [address] [place] LIVER FUNCTION BILIRUBIN.D IRECT [MASS/VOLUM E] IN SERUM OR PLASMA 0.5 mg/dL 0 - 0.5 06/06 Specimen Type: SERUM No comment entered. Ordering Provider: SHAYNE GOMEZ A Report Released Date/Time: May 31, 2024 04:07 PM Reporting Lab: [facility] [place] [address] [address] Performing Lab: [facility] [place] [address] [address] [place] HEMOGLOBI N A1C PANEL HEMOGLOBIN A1C/HEMOGLO BIN.TOTAL IN BLOOD BY HPLC 5.3 4.0 - 5.6 06/06 Specimen Type: BLOOD Comment: Values obtained from A1C measurement s can vary. For atypical A1C assays, a reported value of 7.0 could actually be between 6.72 and 7.28 if measured by a reference method. A reported value of 9.0 could actually be between 8.73 and 9.27. Ref: http://www. ngsp.org/[place] Pdata.asp Ordering Provider: SHAYNE GOMEZ A Report Released Date/Time: May 31, 2024 04:07 PM Reporting Lab: [facility]PITALN [address] [address] Performing Lab: [facility]PITALN [address] [address] [place] TSH THYROTROPIN [UNITS/VOLU ME] IN SERUM OR PLASMA 1.82 u[IU]/ mL 0.35 - 5.00 06/06 Specimen Type: SERUM No comment entered. Ordering Provider: SHAYNE GOMEZ A Report Released Date/Time: May 31, 2024 04:07 PM Reporting Lab: [facility]N [address] [address] Performing Lab: [facility] [address] [address] [place] CBC AND DIFF (AUTO) LEUKOCYTES [#/VOLUME] IN BLOOD BY AUTOMATED COUNT 5.44 10*3/u L 4.50 - 11.00 06/06 Specimen Type: BLOOD No comment entered. Ordering Provider: SHAYNE GOMEZ A Report Released Date/Time: May 31, 2024 04:07 PM Reporting Lab: [facility]N [address] [address] Performing Lab: [facility] [address] [address] [place] CBC AND DIFF (AUTO) ERYTHROCYTE S [#/VOLUME] IN BLOOD BY AUTOMATED COUNT 5.33 10*6/u L 4.23 - 5.66 06/06 Specimen Type: BLOOD No comment entered. Ordering Provider: SHAYNE GOMEZ A Report Released Date/Time: May 31, 2024 04:07 PM Reporting Lab: [facility]N [address] [address] Performing Lab: [facility]N [address] [address] [place] CBC AND DIFF (AUTO) HEMOGLOBIN [MASS/VOLUM E] IN BLOOD 15.6 g/dL 12.8 - 17 06/06 Specimen Type: BLOOD No comment entered. Ordering Provider: SHAYNE GOMEZ A Report Released Date/Time: May 31, 2024 04:07 PM Reporting Lab: [facility] [address] [address] Performing Lab: [facility] [address] [address] [place] CBC AND DIFF (AUTO) HEMATOCRIT [VOLUME FRACTION] OF BLOOD BY AUTOMATED COUNT 45.3 39.2 - 50.4 06/06 Specimen Type: BLOOD No comment entered. Ordering Provider: SHAYNE GOMEZ A Report Released Date/Time: May 31, 2024 04:07 PM Reporting Lab: [facility] [address] [address] Performing Lab: [facility] [address] [address] [place] CBC AND DIFF (AUTO) MCV [ENTITIC VOLUME] BY AUTOMATED COUNT 85.0 fL 82 - 99 06/06 Specimen Type: BLOOD No comment entered. Ordering Provider: SHAYNE GOMEZ A Report Released Date/Time: May 31, 2024 04:07 PM Reporting Lab: [facility] [address] [address] Performing Lab: [facility] [address] [address] [place] CBC AND DIFF (AUTO) MCHC [MASS/VOLUM E] BY AUTOMATED COUNT 34.4 g/dL 30.8 - 35.1 06/06 Specimen Type: BLOOD No comment entered. Ordering Provider: SHAYNE GOMEZ A Report Released Date/Time: May 31, 2024 04:07 PM Reporting Lab: [facility] [address] [address] Performing Lab: [facility] [address] [address] [place] CBC AND DIFF (AUTO) PLATELETS [#/VOLUME] IN BLOOD BY AUTOMATED COUNT 267 10*3/u L 140 - 360 06/06 Specimen Type: BLOOD No comment entered. Ordering Provider: SHAYNE GOMEZ A Report Released Date/Time: May 31, 2024 04:07 PM Reporting Lab: [facility] [address] [address] Performing Lab: [facility] [address] [address] [place] CBC AND DIFF (AUTO) ERYTHROCYTE DISTRIBUTIO N WIDTH [RATIO] BY AUTOMATED COUNT 12.0 12.0 - 16.0 06/06 Specimen Type: BLOOD No comment entered. Ordering Provider: SHAYNE GOMEZ A Report Released Date/Time: May 31, 2024 04:07 PM Reporting Lab: [facility] [address] [address] Performing Lab: [facility] [address] [address] [place] CBC AND DIFF (AUTO) MONOCYTES [#/VOLUME] IN BLOOD BY AUTOMATED COUNT 0.37 10*3/u L 0.30 - 1.10 06/06 Specimen Type: BLOOD No comment entered. Ordering Provider: SHAYNE GOMEZ A Report Released Date/Time: May 31, 2024 04:07 PM Reporting Lab: [facility] [address] [address] Performing Lab: [facility] [address] [address] [place] CBC AND DIFF (AUTO) MCH [ENTITIC MASS] BY AUTOMATED COUNT 29.3 pg 26.2 - 32.6 06/06 Specimen Type: BLOOD No comment entered. Ordering Provider: SHAYNE GOMEZ A Report Released Date/Time: May 31, 2024 04:07 PM Reporting Lab: [facility] [address] [address] Performing Lab: [facility] [address] [address] [place] CBC AND DIFF (AUTO) NEUTROPHILS /100 LEUKOCYTES IN BLOOD BY AUTOMATED COUNT 47.4 43.7 - 75.8 06/06 Specimen Type: BLOOD No comment entered. Ordering Provider: SHAYNE GOMEZ A Report Released Date/Time: May 31, 2024 04:07 PM Reporting Lab: [facility] [place] [address] [address] Performing Lab: [facility] [place] [address] [address] [place] CBC AND DIFF (AUTO) LYMPHOCYTES /100 LEUKOCYTES IN BLOOD BY AUTOMATED COUNT 42.5 14.0 - 42.3 06/06 H Specimen Type: BLOOD No comment entered. Ordering Provider: SHAYNE GOMEZ A Report Released Date/Time: May 31, 2024 04:07 PM Reporting Lab: [facility] [address] [address] Performing Lab: [facility] [address] [address] [place] CBC AND DIFF (AUTO) MONOCYTES/1 00 LEUKOCYTES IN BLOOD BY AUTOMATED COUNT 6.8 5.1 - 13.7 06/06 Specimen Type: BLOOD No comment entered. Ordering Provider: SHAYNE GOMEZ A Report Released Date/Time: May 31, 2024 04:07 PM Reporting Lab: [facility] [address] [address] Performing Lab: [facility] [address] [address] [place] CBC AND DIFF (AUTO) EOSINOPHILS /100 LEUKOCYTES IN BLOOD BY AUTOMATED COUNT 2.2 0.4 - 6.8 06/06 Specimen Type: BLOOD No comment entered. Ordering Provider: SHAYNE GOMEZ A Report Released Date/Time: May 31, 2024 04:07 PM Reporting Lab: [facility] [address] [address] Performing Lab: [facility] [address] [address] [place] CBC AND DIFF (AUTO) BASOPHILS/1 00 LEUKOCYTES IN BLOOD BY AUTOMATED COUNT 0.9 0.1 - 2.0 06/06 Specimen Type: BLOOD No comment entered. Ordering Provider: SHAYNE GOMEZ A Report Released Date/Time: May 31, 2024 04:07 PM Reporting Lab: [facility] [address] [address] Performing Lab: [facility]RDECAT[facility]PITALTRN [address] [address] [place] CBC AND DIFF (AUTO) NEUTROPHILS [#/VOLUME] IN BLOOD BY AUTOMATED COUNT 2.58 10*3/u L 2.20 - 7.60 06/06 Specimen Type: BLOOD No comment entered. Ordering Provider: SHAYNE GOMEZ A Report Released Date/Time: May 31, 2024 04:07 PM Reporting Lab: [facility]ITALTRN [address] [address] Performing Lab: [facility] [address] [place] CBC AND DIFF (AUTO) LYMPHOCYTES [#/VOLUME] IN BLOOD BY AUTOMATED COUNT 2.31 10*3/u L 1.00 - 3.20 06/06 Specimen Type: BLOOD No comment entered. Ordering Provider: SHAYNE GOMEZ A Report Released Date/Time: May 31, 2024 04:07 PM Reporting Lab: [facility]ITALTRN [address] [address] Performing Lab: [facility] [address] [address] [place] CBC AND DIFF (AUTO) EOSINOPHILS [#/VOLUME] IN BLOOD BY AUTOMATED COUNT 0.12 10*3/u L 0.03 - 0.44 06/06 Specimen Type: BLOOD No comment entered. Ordering Provider: SHAYNE GOMEZ A Report Released Date/Time: May 31, 2024 04:07 PM Reporting Lab: [facility] [address] [address] Performing Lab: [facility]RDE[facility]ITALTRN [facility]USE[address] [address] [place] CBC AND DIFF (AUTO) BASOPHILS [#/VOLUME] IN BLOOD BY AUTOMATED COUNT 0.05 10*3/u L 0.01 - 0.13 06/06 Specimen Type: BLOOD No comment entered. Ordering Provider: SHAYNE GOMEZ A Report Released Date/Time: May 31, 2024 04:07 PM Reporting Lab: [facility] [address] [address] Performing Lab: [facility] [address] [address] [place] CBC AND DIFF (AUTO) IMMATURE GRANULOCYTE S/100 LEUKOCYTES IN BLOOD BY AUTOMATED COUNT 0.2 0.0 - 0.7 06/06 Specimen Type: BLOOD No comment entered. Ordering Provider: SHAYNE GOMEZ A Report Released Date/Time: May 31, 2024 04:07 PM Reporting Lab: [address] [address] Performing Lab: [facility] [address] [address] [place] CBC AND DIFF (AUTO) IMMATURE GRANULOCYTE S [#/VOLUME] IN BLOOD 0.01 10*3/u L 0.00 - 0.06 06/06 Specimen Type: BLOOD No comment entered. Ordering Provider: SHAYNE GOMEZ A Report Released Date/Time: May 31, 2024 04:07 PM Reporting [facility] [address] [address] Performing Lab: [facility] [address] [address] [place] CBC AND DIFF (AUTO) NRBC % 0.0 0.0 - 0.0 06/06 Specimen Type: BLOOD No comment entered. Ordering Provider: SHAYNE GOMEZ A Report Released Date/Time: May 31, 2024 04:07 PM Reporting Lab: [facility] [address] [address] Performing Lab: [address] [address] [place] CBC AND DIFF (AUTO) NRBC, ABS 0.00 10*3/u L 0.00 - 0.00 06/06 Specimen Type: BLOOD No comment entered. Ordering Provider: SHAYNE GOMEZ A Report Released Date/Time: May 31, 2024 04:07 PM Reporting Lab: [address] [address] Performing Lab: [address] [address] [facility] BASIC METABOLIC PANEL (fasting) UREA NITROGEN [MASS/VOLUM E] IN SERUM OR PLASMA 20 mg/dL 7 - 25 06/06 Specimen Type: SERUM No comment entered. Ordering Provider: SHAYNE GOMEZ A Report Released Date/Time: Jun 06, 2024 10:06 AM Reporting Lab: [address] [address] Performing Lab: [address] [address] [place] BASIC METABOLIC PANEL (fasting) GLUCOSE [MASS/VOLUM E] IN SERUM OR PLASMA 93 mg/dL 65 - 100 06/06 Specimen Type: SERUM No comment entered. Ordering Provider: SHAYNE GOMEZ A Report Released Date/Time: Jun 06, 2024 10:06 AM Reporting Lab: [address] [address] Performing Lab: [address] [address] [place] [employer] BASIC METABOLIC PANEL (fasting) SODIUM [MOLES/VOLU ME] IN SERUM OR PLASMA 137 mmol/L 135 - 145 06/06 Specimen Type: SERUM No comment entered. Ordering Provider: SHAYNE GOMEZ A Report Released Date/Time: Jun 06, 2024 10:06 AM Reporting Lab: [address] [address] Performing Lab: [address] [address] [place] [employer] BASIC METABOLIC PANEL (fasting) POTASSIUM [MOLES/VOLU ME] IN SERUM OR PLASMA 4.5 mmol/L 3.5 - 5.0 06/06 Specimen Type: SERUM No comment entered. Ordering Provider: SHAYNE GOMEZ A Report Released Date/Time: Jun 06, 2024 10:06 AM Reporting Lab: [facility] [address] [facility] [address] Performing Lab: [facility] [address] [facility] [address] [place] BASIC METABOLIC PANEL (fasting) CHLORIDE [MOLES/VOLU ME] IN SERUM OR PLASMA 102 mmol/L 100 - 110 06/06 Specimen Type: SERUM No comment entered. Ordering Provider: SHAYNE GOMEZ A Report Released Date/Time: Jun 06, 2024 10:06 AM Reporting Lab: [address] [address] Performing Lab: [facility] [address] [address] [place] BASIC METABOLIC PANEL (fasting) CARBON DIOXIDE, TOTAL [MOLES/VOLU ME] IN SERUM OR PLASMA 25 meq/L 20 - 30 06/06 Specimen Type: SERUM No comment entered. Ordering Provider: SHAYNE GOMEZ A Report Released Date/Time: Jun 06, 2024 10:06 AM Reporting Lab: [address] [address] Performing Lab: [facility] [address] [address] [place] BASIC METABOLIC PANEL (fasting) CREATININE [MASS/VOLUM E] IN SERUM OR PLASMA 0.98 mg/dL 0.50 - 1.40 06/06 Specimen Type: SERUM No comment entered. Ordering Provider: SHAYNE GOMEZ A Report Released Date/Time: Jun 06, 2024 10:06 AM Reporting Lab: [facility] [address] [address] Performing Lab: [facility] [address] [address] [place] BASIC METABOLIC PANEL (fasting) GLOMERULAR FILTRATION RATE/1.73 SQ M.PREDICTED [VOLUME RATE/AREA] IN SERUM, PLASMA OR BLOOD BY CREATININE- BASED FORMULA (CKD-EPI 2020) >90mL/ min 60 06/06 Specimen Type: SERUM No comment entered. Ordering Provider: SHAYNE GOMEZ Report Released Date/Time: Jun 06, 2024 10:06 AM Reporting Lab: [facility] [address] [address] Performing Lab: [facility] [address] [place] BASIC METABOLIC PANEL (fasting) UREA NITROGEN [MASS/VOLUM E] IN SERUM OR PLASMA 15 mg/dL 7 - 25 09/30 Specimen Type: SERUM No comment entered. Ordering Provider: MAURO JC Report Released Date/Time: Jul 08, 2023 11:58 AM Reporting Lab: [facility] [address] [address] Performing Lab: [facility] [address] [address] [place] BASIC METABOLIC PANEL (fasting) GLUCOSE [MASS/VOLUM E] IN SERUM OR PLASMA 94 mg/dL 65 - 100 09/30 Specimen Type: SERUM No comment entered. Ordering Provider: MAURO JC Report Released Date/Time: Jul 08, 2023 11:58 AM Reporting Lab: [facility] [address] [address] Performing Lab: [facility] [address] [place] BASIC METABOLIC PANEL (fasting) SODIUM [MOLES/VOLU ME] IN SERUM OR PLASMA 137 mmol/L 135 - 145 09/30 Specimen Type: SERUM No comment entered. Ordering Provider: MAURO JC Report Released Date/Time: Jul 08, 2023 11:58 AM Reporting Lab: [facility] [address] [address] Performing Lab: [facility] [address] [place] BASIC METABOLIC PANEL (fasting) POTASSIUM [MOLES/VOLU ME] IN SERUM OR PLASMA 4.4 mmol/L 3.5 - 5.0 09/30 Specimen Type: SERUM No comment entered. Ordering Provider: MAURO JC Report Released Date/Time: Jul 08, 2023 11:58 AM Reporting Lab: [facility] [address] [address] Performing Lab: [facility] [address] [address] [place] BASIC METABOLIC PANEL (fasting) CHLORIDE [MOLES/VOLU ME] IN SERUM OR PLASMA 102 mmol/L 100 - 110 09/30 Specimen Type: SERUM No comment entered. Ordering Provider: MAURO JC Report Released Date/Time: Jul 08, 2023 11:58 AM Reporting Lab: [facility] [address] [address] Performing Lab: [facility] [address] [address] [place] BASIC METABOLIC PANEL (fasting) CARBON DIOXIDE, TOTAL [MOLES/VOLU ME] IN SERUM OR PLASMA 27 meq/L 20 - 30 09/30 Specimen Type: SERUM No comment entered. Ordering Provider: MAURO JC Report Released Date/Time: Jul 08, 2023 11:58 AM Reporting Lab: [facility] [address] [address] Performing Lab: [facility] [address] [address] [place] BASIC METABOLIC PANEL (fasting) CREATININE [MASS/VOLUM E] IN SERUM OR PLASMA 1.10 mg/dL 0.50 - 1.40 09/30 Specimen Type: SERUM No comment entered. Ordering Provider: MAURO JC Report Released Date/Time: Jul 08, 2023 11:58 AM Reporting Lab: [facility] [address] [address] Performing Lab: [facility] [address] [address] [employer] BASIC METABOLIC PANEL (fasting) GLOMERULAR FILTRATION RATE/1.73 SQ M.PREDICTED [VOLUME RATE/AREA] IN SERUM, PLASMA OR BLOOD BY CREATININE- BASED FORMULA (CKD-EPI 2020) 88 mL/min 60 09/30 Specimen Type: SERUM No comment entered. Ordering Provider: MAURO JC Report Released Date/Time: Jul 08, 2023 11:58 AM Reporting Lab: [address] [address] Performing Lab: [address] [address] [employer] HEMOGLOBI N A1C PANEL HEMOGLOBIN A1C/HEMOGLO BIN.TOTAL IN BLOOD BY HPLC 5.1 4.0 - 5.6 09/30 Specimen Type: BLOOD Comment: Values obtained from A1C measurement s can vary. For atypical A1C assays, a reported value of 7.0 could actually be between 6.72 and 7.28 if measured by a reference method. A reported value of 9.0 could actually be between 8.73 and 9.27. Ref: http://www. ngsp.org/CA Pdata.asp Ordering Provider: MAURO JC Report Released Date/Time: Jul 08, 2023 11:58 AM Reporting Lab: [address] [address] Performing Lab: [address] [address] [employer] Vital Signs Combined list of inpatient and outpatient Vital Signs from Department of Defense and Veterans Affairs, ranging from 12 months to all on record, depending upon the facility. Vital Sign Value Date Comments Source SYSTOLIC BLOOD PRESSURE 126 06/06/2024 10:09:28 [place] DIASTOLIC BLOOD PRESSURE 75 06/06/2024 10:09:28 [place] PULSE OXIMETRY 99 06/06/2024 10:09:28 [place] WEIGHT 189 06/06/2024 10:09:28 RADHA HODGSON BMI 27 kg/m2 06/06/2024 10:09:28 RAD[facility] HODGSON TEMPERATURE 97.3 06/06/2024 10:09:28 [place] PULSE 64 06/06/2024 10:09:28 [place] Encounters Combined list of: 1) Encounters from Department of Veterans Affairs facilities going backup to the last 18 months, not all VA inpatient encounters are included; 2) Encounters from the Department of Defense facilities going backup to 280 months. Location Location Details Encounter Type Encounter Number Reason For Visit Attending Provider ADM Date DC Date Status Disposition Source [place] [facility]) OUTPATIENT [id number] INPROCE SSING: ACTIVE DUTY CAROLINA HICKEY 04/15 Released w/o Limitations [place] [facility] OUTPATIENT [id number] ABBIE Acevedo 01/06 [place] [id number] PART 2 OF 5 YR LUKE LALA 02/04 [place] [place] [facility] [place] [facility] [id number] Hearing test JUVE AWAN Osmel 02/04 [place] [id number] under 40 SPOTTS, KILEY Fleming 02/04 [place]itations [place] [id number] Flu Mist LOUISRAYSHAWN CARTER Frances 02/11 [place] [id number] L. knee pain HUMBERTO BESS 02/22 [place]itations [place]) [place] [id number] n/v/d x's 1 day VARUN HERMOSILLO N. 05/29 Rele[place] Limitations [place] [id number] Rolled R Ankle ABBIE CAMPOS 11/29 [place] [place] [id number] ANKLE SPRAIN RIGHT OTIS PAREKH 11/30 [place] [facility]PATIENT [id number] ankle f/u CAROLINA OLSEN 12/11 Released with Work/Duty Limitations [place] [id number] Right Ankle sprain TREVOR GRIFFIN 12/11 [place]ased [place] Limitations [place] [id number] TORI Chris 12/12 [place]itations [place] [id number] ANKLE SPRAIN INTEROS SEOUS LIGAMEN T RIGHT TATA TORRES 12/18 [place]ased [place] Limitations [place] [id number] TATA TORRES 01/02 Released w[place]itations [place] [id number] CAROLINA OLSEN 01/04 Released with Work/Duty Limitations [place] [id number] DAVI URBINA 01/04 [place]ased [place] Limitations [place] [id number] right air cast/an TORI Horne 01/09 [place]/o Limitations [place] [id number] DAVI URBINA 01/09 Released [place] Limitations [place] [id number] MASTROGIAC VIVEK BOSCH 01/11 [place]ased [place] Limitations [place] [id number] TATA TORRES 01/18 [place]ased [place] Limitations [place] [id number] pha physica l THAO ROSADO 01/30 [place]ased [place] Limitations [place] [id number] TATA TORRES 02/09 Released w[place] Limitations [place] [id number] mid back pain DARLIN WAITE 02/26 Released w[place] Limitations [place] [id number] Flu Mist RAYSHAWN ELDER 03/14 [place] [id number] oversea s PARVEEN Younger 08/23 Released w/o Limitations [place] [place] [id number] PHA-COM VERONICA VICK 10/05 [place]ased w/o Limitations [place] [id number] IPPD BLADIMIRMICHAEL FAM E 10/05 [place]itations [place]) [place] [id number] IPPD Reading 0mm BLADIMIRMICHAEL FAM E 10/08 Released [place] Limitations [place] SERENA Cornejo [facility]ABEL-[facility]( 1RC) OUTPATIENT [id number] IN-PROC NEYDA SPRAGUE 11/11 Released w/o Limitations SERENA Cornejo [facility]ABEL -PYONGT AEK(1RC ) SERENA Cornejo [facility]( Immunizat [facility]) OUTPATIENT [id number] flumist DAVINA CHATMAN 12/25 Released w/o Limitations SERENA [facility]nejo [facility](Imm unizati ons [place] ) SERENA Cornejo [facility]( [facility] [place]) OUTPATIENT [id number] HCW In-proc GERTRUDE Camp 03/06 Released w/o Limitations SERENA TAVAREZ D [facility]ABEL -[facility](Occ [facility]ation [facility] [place]) SERENA Cornejo [facility]( [facility] [place]) OUTPATIENT [id number] Skin Rash JALEN PEREZ V 06/28 Released w/o Limitations SERENA Cornejo [facility] ) SERENA Cornejo [facility] [place]( Primary Care [facility]) OUTPATIENT [id number] F/U JALEN PEREZ V 07/01 Released w/o Limitations SERENA Cornejo [facility] ) SERENA Cornejo [facility] [place]( Dermatolo gy Clinic [facility]) OUTPATIENT [id number] walk-in a@ 13 :30 THAO ENG 07/04 Released w/o Limitations SERENA Cornejo [facility]ABEL -[facility](Gus matolog y Clinic [facility]) SERENA Cornejo [facility]ABEL-[facility] [place]( [facility] [place] ) OUTPATIENT [id number] Refil medicat ion RAUL LEGER Josué 07/06 Released w/o Limitations SERENA [facility]jo [facility] -[facility] [place]) SERENA Cornejo [facility]AB[facility] [place]( Immunizat ions [place]) OUTPATIENT [id number] Anthrax BRANTJUNE, AJAY N 07/12 Released w/o Limitations SERENA [facility]jo [facility] unizati [facility] ) SERENA Cornejo [facility]EL[facility] [place]( [facility] [place]) OUTPATIENT [id number] Nausea and Diarrhe a CHRIS JALEN V 07/31 Sick at Home/Quarter s SERENA Cornejo [facility]ABEL -[facility] ) SERENA Cornejo [facility]( Immunizat ions [place]) OUTPATIENT [id number] PPD SYLVIA, AJAY N 10/22 Released w/o Limitations SERENA [facility]jo [facility] unizati [facility] ) [place] ([facility])(Bo - Hearing Con) OUTPATIENT [id number] 407TH BSB/SONU UAL MAKEDA DUGAN S 01/21 Released w/o Limitations [place] ([facility])(Alison el - Hearing Con) [place] ([facility])(AMH M04B RH Two) OUTPATIENT [id number] REJI Woodward 08/13 Released w/o Limitations [place] ([facility])(AM H M04B RH Two) [place] ([facility])(AMH M04B RH Two) OUTPATIENT [id number] [place] REJI Rosas A 08/14 Released w/o Limitations [place] ([facility])(AM H M04B [facility] Two) [facility] GROUP PSYCHOTHER APY [id number] Diagnos is: ICD-10- CM F43.23 Adjustm ent disorde r with mixed anxiety and depress ed mood BETTINA RICHTER 07/04 [facility] OFFICE O/P EST HI 40 MIN [id number] [id number] Diagnos is: ICD-10- CM R06.83 Snoring BABITAKENIAElyssa NAVARRETEFrances Froy 07/07 [facility] GROUP PSYCHOTHER APY [id number] Diagnos is: ICD-10- CM F43.10 Post-tr aumatic stress disorde r, unspeci fied BETTINA RICHTER 07/11 [facility] [place] [facility] OFF/OP CONSLTJ NEW/EST HI 55 [id number] Diagnos is: ICD-10- CM R06.83 Snoring SWETHA MONTIEL R 07/14 [facility] [place] [place] [facility] GROUP PSYCHOTHER APY [id number] Diagnos is: ICD-10- CM F43.10 Post-tr aumatic stress disorde r, unspeci BETTINA Ferrara 07/18 [facility] GROUP PSYCHOTHER APY [id number] Diagnos is: ICD-10- CM F43.10 Post-tr aumatic stress disorde r, unspeci BETTINA Ferrara 07/25 [facility] [place] [facility] Outpatient Encounter [id number] 08/09 [facility] [place] [facility] GROUP PSYCHOTHER APY [id number] Diagnos is: ICD-10- CM F43.10 Post-tr aumatic stress disorde r, unspeci bibi RICHTER,BETTINA LEROY 08/15 [facility] GROUP PSYCHOTHER APY [id number] Diagnos is: ICD-10- CM F43.10 Post-tr aumatic stress disorde r, unspeci bibi RICHTER,BETTINA LEROY08/22 [facility] GROUP PSYCHOTHER APY [id number] [id number] Diagnos is: ICD-10- CM F43.10 Post-tr aumatic stress disorde r, unspeci bibi RICHTER,BETTINA GABRIELIE 08/29 [facility] GROUP PSYCHOTHER APY [id number] Diagnos is: ICD-10- CM F43.10 Post-tr aumatic stress disorde r, unspeci bibi BETTINA RICHTER LEROY 09/05 [facility] GROUP PSYCHOTHER APY [id number] Diagnos is: ICD-10- CM F43.10 Post-tr aumatic stress disorde r, unspeci bibi NEELAM,BETTINA LEROY09/12 [facility] GROUP PSYCHOTHER APY [id number] [id number] Diagnos is: ICD-10- CM F43.10 Post-tr aumatic stress disorde r, unspeci bibi BETTINA RICHTER LEROY 09/19 [facility] GROUP PSYCHOTHER APY [id number] Diagnos is: ICD-10- CM F43.10 Post-tr aumatic stress disorde r, unspeci bibi BETTINA RICHTER LEROY 10/03 [facility] Outpatient Encounter [id number] 10/06 [facility] GROUP PSYCHOTHER APY [id number] Diagnos is: ICD-10- CM F43.10 Post-tr aumatic stress disorde r, unspeci BETTINA Ferrara LEROY 10/10 [facility] GROUP PSYCHOTHER APY [id number] [id number] Diagnos is: ICD-10- CM F43.10 Post-tr aumatic stress disorde r, unspeci bibi RICHTERBETTINA LEROY 10/17 [facility] GROUP PSYCHOTHER APY [id number] Diagnos is: ICD-10- CM F43.10 Post-tr aumatic stress disorde r, unspeci bibi RICHTERBETTINA LEROY10/24 [facility] [place] [facility] Outpatient Encounter [id number] 10/25 [facility] [place] [place] [facility] [place] [facility] Outpatient Encounter [id number] 10/25 [facility] [place] [place] [facility] GROUP PSYCHOTHER APY [id number] Diagnos is: ICD-10- CM F43.10 Post-tr aumatic stress disorde r, unspeci bibi NEELAMBETTINA LEROY 11/07 [facility] GROUP PSYCHOTHER APY [id number] [id number] Diagnos is: ICD-10- CM F43.10 Post-tr aumatic stress disorde r, unspeci bibi BETTINA RICHTER LEROY 11/28 [facility] GROUP PSYCHOTHER APY [id number] [id number] Diagnos is: ICD-10- CM F43.10 Post-tr aumatic stress disorde r, unspeci bibi BETTINA RICHTER LEROY 12/05 [facility] GROUP PSYCHOTHER APY [id number] [id number] Diagnos is: ICD-10- CM F43.10 Post-tr aumatic stress disorde r, unspeci bibi BETTINA RICHTER LEROY 12[facility]12 [facility] [place] [facility] Outpatient Encounter [id number] 1.12/13 [facility] [place] [facility] PSYCHOTHER APY [id number] [id number] Diagnos is: ICD-10- CM F43.10 Post-tr aumatic stress disorde r, unspeci fifrancisco RICHTER,BETTINA LEROY 12/19 [facility] GROUP PSYCHOTHER APY [id number] [id number] Diagnos is: ICD-10- CM F43.10 Post-tr aumatic stress disorde r, unspeci bibi RICHTER,BETTINA LEROY 12/26 [facility] GROUP PSYCHOTHER APY [id number] [id number] Diagnos is: ICD-10- CM F43.10 Post-tr aumatic stress disorde r, unspeci bibi RICHTER,BETTINA LEROY 01/09 [facility] GROUP PSYCHOTHER APY [id number] Diagnos is: ICD-10- CM F43.10 Post-tr aumatic stress disorde r, unspeci bibi RICHTER,BETTINA LEROY 01/16 [facility] [place] [facility] Outpatient Encounter [id number] 01/17 [facility] [place] [facility] PSYCHOTHER APY [id number] Diagnos is: ICD-10- CM F43.10 Post-tr aumatic stress disorde r, unspeci BETTINA Ferrara LEROY 01/23 [facility] [place] [facility] APY [id number] Diagnos is: ICD-10- CM F43.10 Post-tr aumatic stress disorde r, unspeci BETTINA Ferrara LEROY 01/30 [facility] [place] APY 47528-3.63 [id number] 01 Diagnos is: ICD-10- CM F43.10 Post-tr aumatic stress disorde r, unspeci fifracnisco RICHTER,BETTINA LEROY 02/27 [facility] APY 48783-3.63 [id number] Diagnos is: ICD-10- CM F43.10 Post-tr aumatic stress disorde r, unspeci deepalifrancisco RICHTER,BETTINA LEROY 03/06 [facility] APY 20530-6.63 [id number] Diagnos is: ICD-10- CM F43.10 Post-tr aumatic stress disorde r, unspeci bibi RICHTER,BETTINA LEROY03/20 [facility] APY 71599-4.63 [id number] Diagnos is: ICD-10- CM F43.10 Post-tr aumatic stress disorde r, unspeci bibi RICHTER,BETTINA LEROY03/27 [facility] APY 87915-3.63 [id number] 74 Diagnos is: ICD-10- CM F43.10 Post-tr aumatic stress disorde r, unspeci bibi RICHTER,BETTINA LEROY04/03 [facility] [place] [facility] APY 04946-4.63 1BY. 17 Diagnos is: ICD-10- CM F43.10 Post-tr aumatic stress disorde r, unspeci bibi RICHTER,BETTINA LEROY04/10 [facility] [place] [facility] APY 41859-3.63 [id number] 72 Diagnos is: ICD-10- CM F43.10 Post-tr aumatic stress disorde r, unspeci BETTINA Ferrara LEROY 04/17 [facility] APY 95073-2.63 [id number] Diagnos is: ICD-10- CM F43.10 Post-tr aumatic stress disorde r, unspeci BETTINA Ferrara LEROY04/24 [place] [facility] [facility] APY 31171-2.63 [id number] 54 Diagnos is: ICD-10- CM F43.10 Post-tr aumatic stress disorde r, unspeci BETTINA FerraraIE 05/08 [facility] [place] [facility] APY 10163-9.63 [id number] 51 Diagnos is: ICD-10- CM F43.10 Post-tr aumatic stress disorde r, unspeci bibi RICHTERBETTINA GABRIELIE 05/15 [facility] [facility] [id number] Diagnos is: ICD-10- CM F43.10 Post-tr aumatic stress disorde r, unspeci bibi NEELAMBETTINA LEROY 05/29 [facility] [id number] Diagnos is: ICD-10- CM F43.10 Post-tr aumatic stress disorde r, unspeci bibi NEELAMBETTINA LEROY 06/05 [facility] [place] [facility] Outpatient Encounter [id number] 06/05 [facility] [place] [facility] [facility] OFFICE O/P EST LOW 20 MIN [id number] Diagnos is: ICD-10- CM F43.10 Post-tr aumatic stress disorde r, unspeci bibi GOMEZ,DA VID A 06/06 [facility] [place] [facility] Outpatient Encounter [id number] 06/06 [facility] [place] [facility] [facility] [id number] Diagnos is: ICD-10- CM F43.10 Post-tr aumatic stress disorde r, unspeci bibi BETTINA RICHTER 06/12 [facility] [id number] Diagnos is: ICD-10- CM F43.10 Post-tr aumatic stress disorde r, unspeci fifrancisco RICHTER,BETTINA LEROY06/26 [facility] [id number] Diagnos is: ICD-10- CM F43.10 Post-tr aumatic stress disorde r, unspeci BETTINA Ferrara LEROY 07/10 [facility] [id number] Diagnos is: ICD-10- CM F43.10 Post-tr aumatic stress disorde r, unspeci bibi RICHTER,BETTINA LEROY07/17 [facility] [id number] 1BY. 24 Diagnos is: ICD-10- CM F43.10 Post-tr aumatic stress disorde r, unspeci bibi RICHTERBETTINA LEROY07/24 [facility] [id number] Diagnos is: ICD-10- CM F43.10 Post-tr aumatic stress disorde r, unspeci BETTINA Ferrara LEROY07/31 [facility] [id number] Diagnos is: ICD-10- CM F43.10 Post-tr aumatic stress disorde r, unspeci BETTINA Ferrara LEROY08/21 [facility] [id number] Diagnos is: ICD-10- CM F43.10 Post-tr aumatic stress disorde r, unspeci BETTINA Ferrara LEROY08/28 [facility] [id number] Diagnos is: ICD-10- CM F43.10 Post-tr aumatic stress disorde r, unspeci BETTINA Ferrara LEROY09/04 [facility] [id number] Diagnos is: ICD-10- CM F43.10 Post-tr aumatic stress disorde r, unspeci bibi RICHTER,BETTINA LEROY09/11 [facility] [id number] Diagnos is: ICD-10- CM F43.10 Post-tr aumatic stress disorde r, unspeci bibi NEELAM,BETTINA LEROY 09/18 [facility] [id number] Diagnos is: ICD-10- CM F43.10 Post-tr aumatic stress disorde r, unspeci deepaliBETTINA Salmeron LEROY 10/02 [facility] [id number] Diagnos is: ICD-10- CM F43.10 Post-tr aumatic stress disorde r, unspeci BETTINA Ferrara LEROY 10/09 [facility] [id number] Diagnos is: ICD-10- CM F43.10 Post-tr aumatic stress disorde r, unspeci bibi NEELAM,BETTINA LEROY 10/16 [facility] [id number] Diagnos is: ICD-10- CM F43.10 Post-tr aumatic stress disorde r, unspeci deepaliBETTINA Salmeron LEROY 10/23 [facility] [id number] Diagnos is: ICD-10- CM F43.10 Post-tr aumatic stress disorde r, unspeci BETTINA Ferrara LEROY11/13 [facility] [place] [facility] Outpatient Encounter [id number] 11/15 [facility] [place] [facility] [id number] Diagnos is: ICD-10- CM F43.10 Post-tr aumatic stress disorde r, BETTINA Liao LEROY 11/27 [facility] [id number] Diagnos is: ICD-10- CM F43.10 Post-tr aumatic stress disorde r, abraham RICHTERBETTINA LEROY 12/04 [facility] [id number] Diagnos is: ICD-10- CM F43.10 Post-tr aumatic stress disorde r, abraham RICHTERBETTINA LEROY 12/11 [facility] [place] [facility] Outpatient Encounter [id number] 12/19 [place] [facility] [place] [facility] [facility] Procedures Combined list of: 1) Procedures from Department of Veterans Affairs facilities going back up to thelast 18 months, not all [place] non-surgical procedures are included; 2) All procedures from the Department of Defense facilities. Procedure Procedure Type Code Date Perfomer Comments Alejo e EDUCATIONAL SUPPLIES, SUCH BOOKS, TAPES, AND PAMPHLETS, FOR THE PATIENT'S EDUCATION AT COST TO PHYSICIAN OR OTHER QUALIFIED HEALTH SONOSCOPE OPERATOR 2003 [facility] EDUCATIONAL SUPPLIES, SUCH BOOKS, TAPES, AND PAMPHLETS, FOR THE PATIENT'S EDUCATION AT COST TO PHYSICIAN OR OTHER QUALIFIED HEALTH SONOSCOPE OPERATOR 2003 [facility] HEPATITIS A AND HEPATITIS B VACCINE (HEPA-HEPB), ADULT DOSAGE, FOR INTRAMUSCULAR USE 2003 [facility] SUPPLY OF SPECTACLES, EXCEPT PROSTHESIS FOR APHAKIA AND LOW VISION AIDS 2003 [facility] VENIPUNCTURE,AGE 2 YEARS/OLDER,NECESSITAT ING THE SKILL OF A PHYSICIAN/OTHER QUALIFIED HEALTH SONOSCOPE OPERATOR (SEP PROC),FOR DIAGNOSTIC/THERAPEUTIC PURPOSES (NOT TO BE USED FOR ROUTINE VENIPUNCTURE) 2003 [facility] SKIN TEST; TUBERCULOSIS, INTRADERMAL 2009 [facility] ANTHRAX VACCINE, FOR SUBCUTANEOUS OR INTRAMUSCULAR USE 2009 [facility] INFLUENZA VIRUS VACCINE, TRIVALENT, LIVE (LAIV3), FOR INTRANASAL USE 2008 [facility] TYPHOID VACCINE, CAPSULAR POLYSACCHARIDE (VICPS), FOR INTRAMUSCULAR USE 2008 [facility] TELE ASSESS & MGT SRV PROV QUAL NONPHYS HLTH CARE PRO TO EST PAT,PARENT,GUARD NOT ORIG REL ASSESS & MGT SRV PROV W/IN PREV 7 DAYS NOR LEAD ASSESS & MGT SRV/PX W/IN NXT 24 HR/SOON APT;5-10 MIN MED DIS 2010 Do[facility] ENVIRONMENTAL INTERVENTION FOR MEDICAL MGMT PURPOSES ON A PSYCHIATRIC PATIENT'S BEHALF WITH AGENCIES, EMPLOYERS, OR INSTITUTIONS 2010 [facility] GROUP PSYCHOTHERAPY (OTHER THAN OF A MULTIPLE-FAMILY GROUP) 2010 [facility] GROUP PSYCHOTHERAPY (OTHER THAN OF A MULTIPLE-FAMILY GROUP) 2010 [facility] INTERPRETATION OR EXPLANATION OF RESULTS OF PSYCHIATRIC, OTH MEDICAL EXAMS/PROCEDURES, OR OTH ACCUMULATED DATA TO FAMILY OR OTH RESPONSIBLE PERSONS,OR ADVISING THEM HOW TO ASSIST PATIENT 2010 [facility] HEALTH&BEHAV ASSESSMENT (EG, HEALTH-FOC CLINICAL INTERVIEW, BEHAVIORAL OBSERVATIONS, PSYCHOPHYSICOLOGICAL MONITOR, HEALTH-ORIENT QUESTIONNAIRES), EA 15 MIN [id number]-[id number] W THE PATIENT; INIT ASSESSMENT 2010 [facility] PSYCHIATRIC DIAGNOSTIC INTERVIEW EXAMINATION 2010 [facility] PSYCHIATRIC DIAGNOSTIC INTERVIEW EXAMINATION 2010 [facility] INDIVIDUAL PSYCHOTHERAPY, INSIGHT ORIENTED, BEHAVIOR MODIFYING AND/OR SUPPORTIVE, IN AN OFFICE OR OUTPATIENT FACILITY, APPROXIMATELY 20 TO 30 MINUTES [id number]-JB-HUWH WITH THE PATIENT 2010 [facility] HEALTH&BEHAV ASSESSMENT (EG, HEALTH-FOC CLINICAL INTERVIEW, BEHAVIORAL OBSERVATIONS, PSYCHOPHYSICOLOGICAL MONITOR, HEALTH-ORIENT QUESTIONNAIRES), EA 15 MIN [id number] W THE PATIENT; INIT ASSESSMENT 2010 [facility] COORDINATED CARE FEE, MAINTENANCE RATE 2009 [facility] COORDINATED CARE FEE, MAINTENANCE RATE 2009 [facility] PSYCHIATRIC DIAGNOSTIC INTERVIEW EXAMINATION 2009 [facility] PURE TONE AUDIOMETRY (THRESHOLD); AIR ONLY 2009 [facility] SCREENING TEST OF VISUAL ACUITY, QUANTITATIVE, BILATERAL 2009 [facility] DETERMINATION OF REFRACTIVE STATE 2003 [facility] SKIN TEST; TUBERCULOSIS, INTRADERMAL 2008 [facility] IMMUNIZATION ADMINISTRATION BY INTRANASAL OR ORAL ROUTE; 1 VACCINE (SINGLE OR COMBINATION VACCINE/TOXOID) 2007 [facility] PHYSICAL THERAPY RE-EVALUATION 2007 [facility] SCREENING TEST OF VISUAL ACUITY, QUANTITATIVE, BILATERAL 2007 [facility] PHYSICAL THERAPY RE-EVALUATION 2007 [facility] THERAPEUTIC PROCEDURE(S), GROUP (2 OR MORE INDIVIDUALS) 2007 [facility] APPLICATION OF A MODALITY TO 1 OR MORE AREAS; HOT OR COLD PACKS 2007 [facility] ANKLE CONTROL ORTHOSIS, STIRRUP STYLE, RIGID, INCLUDES ANY TYPE INTERFACE (E.G., PNEUMATIC, GEL), PREFABRICATED, [id number] 2007 [facility] APPLICATION OF A MODALITY TO 1 OR MORE AREAS; HOT OR COLD PACKS 2007 [facility] UNLISTED FLUOROSCOPIC PROCEDURE (EG, DIAGNOSTIC, INTERVENTIONAL) 2007 [facility] PHYSICAL THERAPY RE-EVALUATION 2007 [facility] PHYSICAL THERAPY RE-EVALUATION 2007 [facility] WALKING BOOT,PNEUMAT &/ VACUUM,W/W/O JTS,W/W/O INTERFACE MATERIAL,PREFABRICATED ITEM THAT HAS BEEN TRIMMED,BENT,MOLDED, SEMBLED,OR OTHERWISE CUSTOMIZED TO FIT A SPECIFIC PATIENT,AN INDIV W EXPERTISE 2007 [facility] SELF-CARE/HOME MANAGMENT TRAIN (EG,ACT OF DAILY LIVING (ADL) &COMPENSAT TRAIN,MEAL PREPARATION,SAFETY PROCS,AND INSTRUCT IN USE OF ASST TECHNOLOGY DEV/ADPT EQUIP) DIR ONE-ON-ONE CONT,EA 15 MINUTES 2007 [facility] CRUTCHES, FOREARM, INCLUDES CRUTCHES OF VARIOUS MATERIALS, ADJUSTABLE OR FIXED, PAIR, COMPLETE WITH TIPS AND HANDGRIPS 2007 [facility] BEHAVIORAL HEALTH COUNSELING AND THERAPY, PER 15 MINUTES 2007 [facility] BEHAVIORAL HEALTH COUNSELING AND THERAPY, PER 15 MINUTES 2007 [facility] ALCOHOL AND/OR OTHER DRUG ABUSE SERVICES, NOT OTHERWISE SPECIFIED 2007 [facility] BEHAVIORAL HEALTH COUNSELING AND THERAPY, PER 15 MINUTES 2007 [facility] BEHAVIORAL HEALTH COUNSELING AND THERAPY, PER 15 MINUTES 2007 [facility] BEHAVIORAL HEALTH COUNSELING AND THERAPY, PER 15 MINUTES 2007 [facility]D BEHAVIORAL HEALTH COUNSELING AND THERAPY, PER 15 MINUTES 2007 [facility]D BEHAVIORAL HEALTH COUNSELING AND THERAPY, PER 15 MINUTES 2007 DoD BEHAVIORAL HEALTH COUNSELING AND THERAPY, PER 15 MINUTES 2007 DoD BEHAVIORAL HEALTH COUNSELING AND THERAPY, PER 15 MINUTES 2007 DoD BEHAVIORAL HEALTH COUNSELING AND THERAPY, PER 15 MINUTES 2007 DoD ALCOHOL AND/OR DRUG ASSESSMENT 2007 [facility]D INJECTION, PROMETHAZINE HCL, UP TO 50 MG 2007 [facility] INJECTION, KETOROLAC TROMETHAMINE, PER 15 MG 2006 [facility] INFLUENZA VIRUS VACCINE, TRIVALENT, LIVE (LAIV3), FOR INTRANASAL USE 2006 [facility] VIS FUNCT SCREEN,AUTOMAT/SEMI-AU TOMAT BILAT QUANT DETERM VISUAL ACUITY,OCULAR ALIGN,COLOR VISION,PSEUDOISOCHROMA T PLATES,& FIELD VIS (MAY INC ALL/SOME SCRN DETERM FOR CONTRAST SENSITIV,VIS UND GLARE) 2006 [facility] PURE TONE AUDIOMETRY (THRESHOLD); AIR ONLY 2006 [facility] Non-Physician Phone Call To Patient/Provider Brief (5-10min) Non-Physician Phone Call To Patient/Provider Brief (5-10min) [id number] 2010 [facility] Psychiatric Therapy Environmental Intervention Psychiatric Therapy Environmental Intervention [id number] 2010 SHARON CHAIREZ [facility] Psychiatric Therapy Group (Interview) Psychiatric Therapy Group (Interview) [id number] 2010 SERA WEINSTEIN [facility] Psychiatric Evaluation Comprehensive Examination Psychiatric Evaluation Comprehensive Examination 97650 2010 SERA WEINSTEIN [facility] Psychiatric Therapy Counseling Family / Guardians Psychiatric Therapy Counseling Family / Guardians [id number] 2010 SERA WEINSTEIN [facility] Psychiatric Therapy Group (Interview) Psychiatric Therapy Group (Interview) [id number] 2010 SERA WEINSTEIN [facility] Health And Behav A e mt Each 15 Min Initial A e ment Health And Behav Assessmt Each 15 Min Initial Assessment 52486 2010 SHARON CHAIREZ [facility] Psychiatric Evaluation Comprehensive Examination Psychiatric Evaluation Comprehensive Examination 28818 2010 SHARON CHAIREZ [facility] Psychiatric Therapy Individual Approximately 20-30 Minutes Psychiatric Therapy Individual Approximately 20-30 Minutes 44966 2010 TASHI GIRALDO [facility] Health And Behav A e mt Each 15 Min Initial A e ment Health And Behav Assessmt Each 15 Min Initial Assessment 91202 2010 LISA CARLISLE [facility] Coordinated care fee, maintenance rate 2009 TYRONE WANG [facility] Case Management, each 15 minutes 2009 TYRONE WANG [facility] Coordinated care fee, maintenance rate 2009 TYRONE WANG [facility] Case Management, each 15 minutes 2009 TYRONE WANG Psychiatric Evaluation Comprehensive Examination Psychiatric Evaluation Comprehensive Examination 89018 2009 SHARON CHAIREZ Threshold Audiogram (Pure Tone) Threshold Audiogram (Pure Tone) [address]Supervised Group Educational Services 2009 MAKEDA VIGIL Skin Test Anergy Tuberculin Intradermal Skin Test Anergy Tuberculin Intradermal 47096 2009 AJAY WARD 25G 5/8 Needle .1mL L Forearm ID PT Tolerated Bjorn Parenteral Fluids IV Infusion Each Additional Hour Parenteral Fluids IV Infusion Each Additional Hour 10490 2009 CHRIS, JALEN V Bjorn Parenteral Fluids IV Infusion Up To 1 Hour Parenteral Fluids IV Infusion Up To 1 Hour 64358 2009 CHRIS, JALEN V Bjorn Intravenous Catheter Placement Intravenous Catheter Placement 43422 2009 CHRIS, JALEN V Bjorn Anthrax Vaccine, For Subcutaneous Use 2009 AJAY WARD Immunization Administration One Vaccine Immunization Administration One Vaccine 86714 2009 AJAY WARD Influenza Virus Vaccine Live Intranasal 2008 DAVINA ROMERO [facility] Anthrax Vaccine, For Subcutaneous Use 2008 NEYDA LEGER Typhoid Vaccine Vi Capsular Polysaccharide, For Intramus Use Typhoid Vaccine Vi Capsular Polysaccharide, For Intramus Use 44641 2008 NEYDA LEGER Skin Test Anergy tuberculin Skin Test Anergy tuberculin 06850 2008 MICHAEL GARRISON [facility] Immunization Admin By Intranasal / Oral Route One Vaccine Immunization Admin By Intranasal / Oral Route One Vaccine 99922 2007 RAYSHAWN ELDER Influenza Virus Vaccine Live Intranasal 2007 RAYSHAWN ELDER Physical Medicine Physical Therapy Re-Evaluation Physical Medicine Physical Therapy Re-Evaluation 07910 2007 TATA TORRES Screening Test Of Visual Acuity, Quantitative, Bilateral Screening Test Of Visual Acuity, Quantitative, Bilateral 72059 2007 THAO ROSADO [facility] Physical Medicine Physical Therapy Re-Evaluation Physical Medicine Physical Therapy Re-Evaluation 86363 2007 TATA TORRES Ankle control orthosis, stirrup style, rigid, includes any type interface (e.g., pneumatic, gel), prefabricated, [id number] 2007 TORI LAWLER [facility] Modalities Cryotherapy Cold Packs Modalities Cryotherapy Cold Packs 91594 2007 NEO THOMPSONAN [facility] Physical Medicine - Group Physical Therapy Se ion Physical Medicine - Group Physical Therapy Session 96121 2007 JAY VIVEK [facility] Modalities Cryotherapy Cold Packs Modalities Cryotherapy Cold Packs 02492 2007 DAVI URBINA Physical Medicine - Group Physical Therapy Se ion Physical Medicine - Group Physical Therapy Session 08504 2007 DAVI URBINA Fluoroscopy Fluoroscopy 79185 2007 CAROLINA OLSEN [facility] Physical Therapy: ___ Se ion Segments, 15 Minutes Each Physical Therapy: ___ Session Segments, 15 Minutes Each 62813 2007 DAVI URBINA Modalities Cryotherapy Cold Packs Modalities Cryotherapy Cold Packs 77324 2007 DAVI URBINA Physical Medicine Physical Therapy Re-Evaluation Physical Medicine Physical Therapy Re-Evaluation 76487 2007 TATA TORRES Physical Medicine Physical Therapy Re-Evaluation Physical Medicine Physical Therapy Re-Evaluation 61314 2007 TATA TORRES [facility] Walking boot, pneumatic, with or without joints, with or without interface material, prefabricated, includes fitting and adjustment 2007 TORI LAWLER [facility] Phys Therapy Education Self Care Training - Per 15 Minutes Phys Therapy Education Self Care Training - Per 15 Minutes 07771 2007 TREVOR GRIFFIN [facility] Physical Medicine Physical Therapy Evaluation Physical Medicine Physical Therapy Evaluation 31852 2007 TREVOR GRIFFIN PNT has a GR III R ankle sprain. Prognosis: Good. Goals: symmetrical gait in 2 wks with no assistive devices. LTG: run 2 miles in 6-8 wks. HEP: AROM and PROM of ankle [address] ankle strengthening against green t-band//PNT demo's all well. [facility] Crutches, forearm, includes crutches of various materials, adjustable or fixed, pair, complete with tips and handgrips 2007 ABBIE CAMPOS Modalities Cryotherapy Cold Packs Modalities Cryotherapy Cold Packs 98740 2007 ABBIE CAMPOS Physical Therapy Gait Training Physical Therapy Gait Training 35414 2007 ABBIE CAMPOS Crutches, underarm, other than wood, adjustable or fixed, pair, with pads, tips and handgrips 2007 ABBIE CAMPOS Conforming bandage, non-elastic, knitted/woven, non-sterile, width greater than or equal to three inches and le than five inches, per yard 2007 ABBIE CAMPOS Ambulance service, basic life support, non-emergency transport (BLS) 2007 ABBIE CAMPOS Cervical Pap Smear Cervical Pap Smear 39319 2007 QQQCHCSIITEST , WPDOCB [facility] Intravenous Catheter Placement Intravenous Catheter Placement 96720 2007 AMARA ELIZONDO IV Infusion For Hydration Each Additional Hour 2007 AMARA ELIZONDO Injection, promethazine HCl, up to 50 mg 2007 AMARA ELIZONDO IV Infusion For Hydration Up To [address] 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 Social History Type Response Date Comment Sourc e Tobacco smoking status NHIS VA-TOBACCO NEVER USED OTHER TYPE 06/06/2024 [facility] [place] [facility] History of tobacco use VA-TOBACCO NEVER USED CIGARETTES 06/06/2024 [facility] [place] History of tobacco use VA-TOBACCO FORMER USER 07/01/2023 [facility] [place] [facility] History of tobacco use VA-TOBACCO FORMER USER 04/23/2022 [facility] LD History of tobacco use VA-TOBACCO FORMER USER 09/24/2020 [facility] LD History of tobacco use VA-TOBACCO FORMER USER 11/10/2018 [facility] History of tobacco use QUIT TOBACCO USE 1-7 YEARS AGO 08/06/2017 [place] This section is an empty social history section. [facility] Plan of Care List of future care activities from Department of Veterans Affairs facilities. Additional future care activities may be listed in the Assessment and Plan section. Date/Time Care Activity Care Activity Detail Facili ty 01/26/2025 AMBULATORY - MEDICINE AM[facility]ULATORY [facility]ICI [place] [facility] [place]
--- OUTSIDE RECORDS SUMMARY | 2025-01-03 08:38 | XMS_ITS | Encounter Summary ---
Author Organization [facility] Address [address] [place] [address] Care Team Providers Care Site Safety Coordinator Name Role Phone Md, Unknown Primary Care Provider Unavailabl e Reason for Referral * Imaging (Routine) - Closed Specialty Diagnoses / Procedures Referred By Contac t Referred To Contact Radiology Diagnoses Pain in thoracic spine Procedures XR THORACOLUMBAR SPINE 2 VIEWS Dora Joel NP [address] [place] [address] Phone: tel: fax: [facility] - [facility] Phone: tel: fax: Referral ID Status Reason Start Date Expiration Date V isits Requested Visits Authorized [id number] Closed Perform Procedure 05/05/2023 05/04/2024 1 1 * Imaging (Routine) - Closed Specialty Diagnoses / Procedures Referred By Contac t Referred To Contact Radiology Diagnoses Pain, unspecified Procedures XR LUMBAR SPINE 2-3 VIEWS Dora Joel NP [address] [place] [address] Phone: tel: fax: [facility] - Central Sched[facility] Phone: tel: fax: Referral ID Status Reason Start Date Expiration Date V isits Requested Visits Authorized [id number] Closed Perform Procedure 05/05/2023 05/04/2024 1 1 Encounter Details Date Type Department Care Team (Late st Contact Info) Description 05/05/2023 Ancillary Orders [facility] Access [address] [facility] [place] [address] Dora Joel, ASSISTANT GENERAL MANAGER [address] [place] [address] Pain, unspecified (Primary Dx); Pain in thoracic [...] upper thoracic spine is out of the wiznb-[id number]-opkq. The visualized thoracic spine demonstrates straightening of [...] upper thoracic spine is out of the amvyo-us-uatq. The visualizedthoracic spine demonstrates straightening of the [...] upper thoracic spine is out of the huyrc-ca-paxd. The visualized thoracic spine demonstrates straightening of [...] upper thoracic spine is out of the eibfk-eb-sflg. The visualizedthoracic spine demonstrates straightening of the normal kyphosis.Vertebral bodies and disc spaces in the visualized thoracic spine appearnormal. No fracture, subluxation or significant arthritic changes. There is normal lumbar lordosis. The vertebral bodies and disc spaces inthe lumbar spine appear normal. No fracture, subluxation or significantarthritic change is identified. IMPRESSION: Normal visualized thoracic and lumbar spine x-rays. us Dora Joel ASSISTANT GENERAL MANAGER IMG XR PROCEDURES Final R esult documented in this encounter Visit Diagnoses Diagnosis Pain, unspecified- Primary Pain in thoracic spine Pain, unspecified Pain in thoracic spine documented in this encounter Care Teams Site Safety Coordinator Relationship Specialty Start Date End Date Md, Unknown 1 Dont Change PCP - General 05/05/23 documented as of this encounter
--- OUTSIDE RECORDS SUMMARY | 2025-01-03 08:38 | XMS_ITS | Clinical Summary ---
Author Organization [facility] Address [address] [place] [address] Care Team Providers Care Duct Layer Name Role Phone Md, Unknown Primary Care Provider Unavailabl e Social History Tobacco Use Types Packs/Day Years Used Date Smoking Tobacco: Never Assessed Sex and Gender Information Value Date Recorded Sex Assigned at Not on file Legal Sex Male 10:14 AM EST Gender Identity Not on file Sexual Orientation Not on file Plan of Treatment Health Maintenance Due Date Last Done Comments Hepatitis C Screening 1984 Lipid Panel 1984 Annual Physical Exam 2002 Tdap and Td Vaccines Adult 08/15/2003 COVID-19 Vaccine (1 - 2023-2 5 season) 2025 Influenza Vaccine (#1) 2025 HIB Vaccines Aged Out No longer eligi ble based on patient's age to complete this topic HPV Vaccines (No Doses Required) Completed Hepatitis A Vaccines Aged Out No long er eligible based on patient's age to complete this topic IPV Vaccines Aged Out No longer eligi ble based on patient's age to complete this topic Meningococcal Vaccine Aged Out No migdalia edmund eligible based on patient's age to complete this topic Pneumococcal Vaccine: Peds ( 0 to 5 Yrs) and At-Risk Pts (6 to 49 Yrs) Aged Out No lo nger eligible based on patient's age to complete this topic RSV <20 Months Aged Out No longer venkata gible based on patient's age to complete this topic Insurance [employer] Care Teams Duct Layer Relationship Specialty Start Date End Date Md, Unknown 1 Dont Change PCP - General 05/05/23
== END 2025-01-03 09:01 | disposition home or self-care (01) ==
LOC: HO.HMCC 08:08
PROVIDERS: PCP Nurse Practitioner Family; Visit Provider Nurse Practitioner Family
DX: Z00.00 Encounter for general adult medical examination without abnormal findings (principal)

== ENCOUNTER → 2025-01-03 08:07 | Outpatient (BNVA) | payer OTHER, SELFPAY | PROVIDERS: PCP Nurse Practitioner Family; Visit Provider Nurse Practitioner Family | DX: Z00.00 Encounter for general adult medical examination without abnormal findings (principal); R73.01 Impaired fasting glucose | CPT/HCPCS: 96127 ==